=== PATIENT | male | born 1970 | race Caucasian/White ===

== ENCOUNTER 2020-10-11 10:45 | Emergency (ER) | payer OTHER, SELFPAY ==
--- NOTE | 2020-10-11 10:54 | ED.GENADULT ---
HPI - General Adult General Chief complaint: Ear Stated complaint: Ear Infection Time Seen by Provider: 10/11/20 10:54 Source: patient Mode of arrival: ambulatory Limitations: no limitations History of Present Illness HPI narrative: 50-year-old male patient presents to [facility] with complaints of pain to bilateral ears for the past 5 days. Patient states he has had a little bit of a runny nose, stuffy nose and a little bit of coughing but it is nonproductive. Patient states he does get allergies this time year every year but denies taking any daily antihistamines. Patient states he has been working 12-hour days and has been using earplugs during the duration of his work time as well. Denies any fevers, body aches or chills. Denies being around anybody with Covid that he is aware of. Related Data Home Medications Medication Instructions Recorded Confirmed ibuprofen 800 mg PO BID 10/11/20 10/11/20 Allergies Allergy/AdvReac Type Severity Reaction Status Date / Time No Known Allergies Allergy Verified 10/11/20 11:07 Review of Systems Review of Systems: Narrative: CONSTITUTIONAL: Denies fever, chills, or sweats. EYES: Denies visual changes, redness, or discharge. ENT: Positive rhinorrhea, congestion, denies sore throat, positive bilateral otalgia. CARDIOVASCULAR: Denies chest pain, palpitations, or edema. RESPIRATORY: Positive dry cough, denies dyspnea. GASTROINTESTINAL: Denies abdominal pain, nausea, vomiting, or diarrhea. GENITOURINARY: Denies dysuria or hematuria. SKIN: Denies rash or itching. MUSCULOSKELETAL: Denies back pain, joint pain, or myalgia. NEUROLOGIC: Denies headache, numbness, or weakness. PSYCHIATRIC: Denies anxiety or depression. [facility] Surgical History Surgical History (Updated 10/11/20 @ 10:55 by JOSH Priest) H/O vasectomy History of orthopedic surgery Right knee x2 Comments At the time of my signature I agree with nursing past medical history, surgical, social, and family history. There is no relevant family history pertinent to the presenting complaint. Exam Narrative: Exam Narrative: GENERAL: Well-appearing, well-nourished, and in no acute distress. HEAD: Normocephalic, atraumatic. EYES: PERRLA and EOMI. ENT: Nares with erythema and edema noted bilaterally, no rhinorrhea or epistaxis. Mucous membranes moist. Bilateral TMs with erythema and some fluid noted behind them. There is some superficial abrasions noted to the bilateral canals most likely due to her as earplugs. Posterior pharynx no erythema, tonsillectomy, exudates or lesions present. NECK: Supple. No lymphadenopathy CHEST: Clear to auscultation. No respiratory distress. HEART: Regular rate and rhythm. No murmur heard. Normal peripheral pulses. ABDOMEN: Soft, nontender, nondistended, normal active bowel sounds. EXTREMITIES: Normal range of motion. No edema. SKIN: Warm, dry, no rash. NEURO: No focal deficits. Alert and oriented x3. Course Vital Signs Vital signs: Vital Signs Temperature 36.6 C 10/11/20 10:59 Pulse Rate 68 10/11/20 10:59 Respiratory Rate 20 10/11/20 10:59 Blood Pressure 150/89 H 10/11/20 10:59 Pulse Oximetry 100 10/11/20 10:59 Temperature 36.6 C 10/11/20 10:59 Pulse Rate 68 10/11/20 10:59 Respiratory Rate 20 10/11/20 10:59 Blood Pressure 150/89 H 10/11/20 10:59 Pulse Oximetry 100 10/11/20 10:59 Vital signs reviewed The patient has been informed that they may have pre-hypertension or Hypertension based on a BP reading in the department. I recommend that the patient call the primary care provider listed on their discharge instructions or a physician of their choice this week to arrange follow up for further evaluation of possible pre-hypertension or Hypertension Medical Decision Making Differential Diagnosis Differential Diagnosis: Differential diagnosis: Otitis media, otitis externa, perforated TM, infection of the outer ear, foreign body or cerumen impact
[2020-10-11 10:59] VITALS: BP 150/89; PULSE 68; RESP 20; TEMP 36.6; O2SAT 100
== END 2020-10-11 11:14 | disposition home or self-care (01) ==
PROVIDERS: Emergency Provider Nurse Practitioner Family
DX: H66.93 Otitis media, unspecified, bilateral (principal); Z98.52 Vasectomy status
CPT/HCPCS: 99213; G0463

== ENCOUNTER 2022-06-04 11:19 | Emergency (ER) | payer OTHER, SELFPAY ==
[2022-06-04 11:25] VITALS: BP 141/77; PULSE 67; RESP 20; TEMP 36.6; O2SAT 99
--- NOTE | 2022-06-04 11:49 | ED.URI ---
HPI - URI/Sore Throat General Chief Complaint: Upper Respiratory Infection Stated Complaint: sinus congestion cough Time Seen by Provider: 06/04/22 11:32 Source: patient, RN notes reviewed and old records reviewed Mode of arrival: ambulatory Limitations: no limitations History of Present Illness HPI Narrative: 52-year-old male presents to [facility] care with complaints of having COVID at the end of April with continued episodes of cough. Patient reports that he has sinus drainage, pressure in his ears with continued cough. Patient reports that he has history of having sinus infections and he thinks that congestion and cough is lingering from COVID. Patient has been taking Tylenol cold and flu with no improvement in sinus pressure and drainage.Patient denies any dyspnea or any wheezing or recent fevers. MD elicited complaint: cough, rhinorrhea, nasal congestion and sinus pain Pertinent past history: sinusitis and other (tested positive for COVID on May 15) Able to tolerate fluids by mouth: Yes Treatments prior to arrival: other (Tylenol COLD and FLU) Related Data Home Medications Medication Instructions Recorded Confirmed albuterol sulfate 90 mcg/actuation 90 mcg inhalation Q4-6H PRN 06/04/22 06/04/22 aerosol inhaler Shortness Of Breath Or Wheezing ibuprofen 800 mg tablet 800 mg PO BID 06/04/22 06/04/22 Allergies Allergy/AdvReac Type Severity Reaction Status Date / Time No Known Allergies Allergy Verified 06/04/22 11:36 Review of Systems Review of Systems: CONSTITUTIONAL: Denies fever, chills, or sweats. EYES: Denies visual changes, redness, or discharge. ENT: Positive for rhinorrhea, congestion,no sore throat, positive for otalgia, sinus pressure. CARDIOVASCULAR: Denies chest pain, palpitations, or edema. RESPIRATORY: Positive for cough denies dyspnea. GASTROINTESTINAL: Denies abdominal pain, nausea, vomiting, or diarrhea. GENITOURINARY: Denies dysuria or hematuria. SKIN: Denies rash or itching. MUSCULOSKELETAL: Denies back pain, joint pain, or myalgia. NEUROLOGIC: Positive for frontal headache,no numbness, or weakness. PSYCHIATRIC: Denies anxiety or depression. All systems reviewed & are unremarkable except as noted in HPI and below PMFSH Past Medical History Medical History (Updated 06/04/22 @ 14:07 by Mckenzie Diaz NP) Acute sinusitis COVID-19 April Surgical History Surgical History (Updated 10/11/20 @ 10:55 by JOSH Priest) H/O vasectomy History of orthopedic surgery Right knee x2 Social History Social History (Updated 06/04/22 @ 14:00 by Mckenzie Diaz NP) Smoking status: Never smoker Substance use type: does not use Living arrangements: with family Gender identity (if verbalized by the patient): Male Comments At time of signature, agree with nursing past medical, surgical, social and family history. There is no relevant family history pertinent to the presenting complaint Exam Narrative: GENERAL: Well-appearing, well-nourished, and in no acute distress. HEAD: Normocephalic, atraumatic. EYES: PERRLA and EOMI. ENT: Nares with red membranes, yellow greenish sinus rhinorrhea no epistaxis. Mucous membranes moist. TM's normal with dull light reflex, throat with some redness with no lesions or exudates or tonsil swelling. NECK: Supple.no lymphadenopathy CHEST: Clear to auscultation. No respiratory distress. cough noted with SAO2 99% on room air HEART: Regular rate and rhythm. No murmur heard. Normal peripheral pulses. ABDOMEN: Soft, nontender, nondistended, normal active bowel sounds. EXTREMITIES: Normal range of motion. No edema. SKIN: Warm, dry, no rash. NEURO: No focal deficits. Alert and oriented x3. Course Course Level of Care: Express Care Visit Vital Signs Vital signs: Vital Signs Temperature 36.6 C 06/04/22 11:25 Pulse Rate 67 06/04/22 11:25 Respiratory Rate 20 06/04/22 11:25 Blood Pressure 141/77 H 06/04/22 11:25 Pulse Oxi
== END 2022-06-04 12:10 | disposition home or self-care (01) ==
PROVIDERS: Emergency Provider Registered Nurse; PCP Family Medicine
DX: J32.9 Chronic sinusitis, unspecified (principal); R05.1 Acute cough; Z86.16 Personal history of COVID-19
CPT/HCPCS: 99213; G0463

== ENCOUNTER 2025-07-23 16:28 | Emergency (ER) | payer OTHER, SELFPAY ==
[2025-07-23 16:40] VITALS: BP 140/75; PULSE 83; RESP 20; TEMP 36.7; O2SAT 98
[2025-07-23 16:54] LABS: EDCOVIDSCREEN Negative (Negative); EDINFLUASCREEN Negative (Negative); EDINFLUBSCREEN Negative (Negative)
--- NOTE | 2025-07-23 17:02 | ED.URI ---
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 Believes this is due to sitting in the rain watching sports just prior to onset of symptoms. Also states his granddaughter has similar symptoms and received a Z-Juanito. Believes he also needs a Zpack as this is usually how he is treated with similar symptoms. Denies fever. He has tried Tylenol cold, ibuprofen, and albuterol nebulizer treatments with some improvement. Related Data Home Medications ?Medication ?Instructions ?Recorded ?Confirmed ?Last Taken ?Type albuterol sulfate 90 mcg/actuation 90 mcg inhalation Q4-6H PRN 06/04/22 06/04/22 Unknown History aerosol inhaler Shortness Of Breath Or Wheezing hydrocodone 5 mg-acetaminophen 325 tablet 07/23/25 Unknown History mg tablet Allergies Allergy/AdvReac Type Severity Reaction Status Date / Time No Known Allergies Allergy Verified 07/23/25 16:40 [facility] Past Medical History Medical History COVID-19 May 15,2921 Acute sinusitis Surgical History Surgical History History of orthopedic surgery Right knee x2 H/O vasectomy Social History Social History Substance use type: does not use Living arrangements: with family Gender identity (if verbalized by the patient): Male Comments At time of signature, I have reviewed and agree with nursing past medical, surgical, social and family history unless otherwise noted. Please see nursing chart for further information. There is no relevant family history pertinent to the presenting complaint Exam Narrative: GENERAL: Well-appearing, over-nourished, and in no acute distress. HEAD: Normocephalic, atraumatic. EYES: EOMI. No redness or drainage. Conjunctivae normal. ENT: Mucous membranes pink and moist. Nares congested. No rhinorrhea. TMs normal bilaterally. Throat normal. Uvula midline. NECK: Normal AROM. Supple. No lymphadenopathy. CHEST: No respiratory distress. Clear to auscultation. HEART: Regular rate and rhythm. No murmur appreciated. EXTREMITIES: Normal range of motion. No edema. SKIN: Warm, dry, no rash. Capillary refill normal. Normal skin turgor. NEURO: No focal deficits. Alert and oriented x3. Gait steady. PSYCH: Normal affect. No signs of depression or anxiety. Course Course Level of Care: Express Care Visit Vital Signs Vital signs: Vital Signs Temperature 98.1 F 07/23/25 16:40 Pulse Rate 83 07/23/25 16:40 Respiratory Rate 20 07/23/25 16:40 Blood Pressure 140/75 07/23/25 16:40 Pulse Oximetry 98 07/23/25 16:40 Oxygen Delivery Room Air 07/23/25 16:40 Temperature 98.1 F 07/23/25 16:40 Pulse Rate 83 07/23/25 16:40 Respiratory Rate 20 07/23/25 16:40 Blood Pressure 140/75 07/23/25 16:40 Pulse Oximetry 98 07/23/25 16:40 Oxygen Delivery Room Air 07/23/25 16:40 Reviewed MDM - URI/Sore Throat MDM Narrative Medical decision making narrative: 55-year-old male patient with 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 Believes this is due to sitting in the rain watching sports just prior to onset of symptoms. Also states his granddaughter has similar symptoms and received a Z-Juanito. Believes he also needs a Zpack as this is usually how he is treated with similar symptoms. Denies fever. He has tried Tylenol cold, ibuprofen, and albuterol nebulizer treatments with some improvement. Upon exam, patient has some nasal congestion, but exam is otherwise normal. Influenza test negative, COVID negative. Symptoms likely viral in etiology. At this time, patient does not have signs or symptoms of a bacterial infection that would indicate an antibiotic prescription. Discussed [id number] medication use and duration of illness. 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 Will also provide some Tessalon Perles for cough. Anticipatory guidance given. VSS. Differential Diagnosis Differential diagnosis: Likely upper respiratory infection (Pneumonia), otitis media, viral infection, influenza and other (COVID ) Lab Data Attestation: I reviewed the patient's lab results. Labs: Lab Results 07/23/25 Range/Units 16:52 POC Influenza A Ag Negative (Negative) POC Influenza B Ag Negative (Negative) POC SARS CoV-2 Ag Negative (Negative) Critical Care Time Critical Care Time Critical Care Time: No Discharge Plan Discharge Clinical Impression: Upper respiratory infection Qualifiers: URI type: unspecified URI Qualified Code(s): J06.9 - Acute upper respiratory infection, unspecified Patient Disposition: Home Condition: Stable Instructions: Upper Respiratory Infection (DC) Additional Instructions: Your COVID-19 and influenza swabs are negative today. Your symptoms are likely due to a viral illness, which is not treated with antibiotics. Virus symptoms can last for up to 7-10days. Take Tylenol or ibuprofen for pain or fever. Take the prednisone and Tessalon Perles as prescribed. Use your albuterol nebulizer treatments as needed for wheezing or shortness of breath. Rest and stay hydrated. Follow up with your PCP in 5 days if symptoms are not improving. Go to the ER immediately if you develop worsening shortness of breath, difficulty swallowing, development of new fever greater than 100.3, or any other concerning symptoms. Patient Language: Indian Prescriptions: New benzonatate 200 mg capsule 200 mg PO TID PRN (Reason: cough) Qty: 20 0RF prednisone 50 mg tablet 50 mg PO DAILY 5 Days Qty: 5 0RF No Action albuterol sulfate 90 mcg/actuation HFA aerosol inhaler 90 mcg INHALATION Q4-6H PRN (Reason: Shortness Of Breath Or Wheezing) hydrocodone-acetaminophen 5-325 mg tablet Follow-up/Referrals: Korina,Titi Grace MD [Primary Care Provider, Unknown] Time of Disposition: 17:02
--- OUTSIDE RECORDS SUMMARY | 2025-07-23 21:07 | XMS_ITS | Encounter Summary ---
Author Organization [facility] Address [address] [place] [address] Phone Care Team Providers Care Business System Manager Name Role Phone Titi Hui MD Primary Care Provider [phone] Melissa Swanson APRN, PRESSURE CONTROL SUPERVISOR Unavailable [phone] Reason for Visit * Reason Comments Medication Refill Encounter Details Date Type Department Care Team (Late Contact Info) Description 05/13/2021 Refill [facility] [address] [place] [id number] Bishnu Dillard APRN, PRESSURE CONTROL SUPERVISOR [address] [address] Medication Refill Social History Tobacco Use Types Packs/Day Years Used Date Smoking Tobacco: Never Smokeless Tobacco: Never Alcohol Use Standard Drinks/Week Comments No 0 (1 standard drink = 0.6 oz pur e alcohol) PHQ-2 Answer Date Recorded Total Score - Questions 1-9 0 07/0 02/2021 Sexually Active Control Partners Comments Yes Female Sex and Gender Information Value Date Recorded Sex Assigned at Not on file Legal Sex Male 9:46 PM CDT Gender Identity Not on file Sexual Orientation Not on file Occupation Industry Job Start Date Job End Date [employer] Not on file Not on file Not on file COVID-19 Exposure Response Date Recorded In the last month, have you been in contact with someone who was confirmed or suspected to have Coronavirus / COVID-19? No / Unsure 05/09/2021 7:47 AM CDT documented as of this encounter Miscellaneous Notes * Telephone Encounter - Margarita Bautista RN - 05/16/2021 10:51 AM CDT Medication failed the protocol, provider to review and approve the medication order if appropriate. Requested Prescriptions Pending Prescriptions Disp Refills ibuprofen (MOTRIN) 800 MG Tablet [Pharmacy Med Name: IBUPROFEN 800MG TABS] 180 Tablet 1 Sig: TAKE ONE TABLET BY MOUTH TWICE A DAY NEEDED FOR MODERATE OR MORE SEVERE PAIN NSAIDs Protocol Failed - 05/13/2021 2:13 PM Failed - Normal serum creatinine in past 12 months CREATININE, BLOOD Date Value Ref Range Status 03/22/2021 0.77 (L) 0.80 - 1.30 mg/dL Final Passed - Visit with relevant provider in past 12 months or upcoming 90 days Recent Visits Date Type Provider Dept 03/22/21 Office Visit Bishnu Dlilard APN, [facility] [place] 09/13/20 Office Visit Bishnu Dillard APN, [facility] [place] Showing recent visits within past 365 days and meeting all other requirements Future Appointments Date Type Provider Dept 06/29/21 Appointment Titi Hui MD [facility] Showing future appointments within next 90 days and meeting all other requirements Passed - No matching NSAID med order in past 45 days No matching medication orders between 04/01/2021 10:51 AM and 05/16/2021 10:51 AM Passed - AST less than 55 or ALT less than 90 in past 12 months SGOT (AST) Date Value Ref Range Status 03/22/2021 12 <=40 U/L Final SGPT (ALT) Date Value Ref Range Status 03/22/2021 16 <=41 U/L Final Passed - HGB greater than 10 or HCT greater than 30 in past 12 months HEMOGLOBIN (HGB) Date Value Ref Range Status 03/22/2021 13.6 13.0 - 16.5 g/dL Final HEMATOCRIT (HCT) Date Value Ref Range Status 03/22/2021 43.0 38.0 - 50.0 % Final documented in this encounter Plan of Treatment Upcoming Encounters Date Type Department Care Team (Late st Contact Info) Description 08/05/2025 4:15 PM METAL DIE FINISHER Office Visit [facility] - [facility] - [place] [address] [place] [address] Titi Hui MD [address]2 [facility] [address] [place] [address] 08/10/2025 4:00 PM METAL DIE FINISHER Office Visit [facility] - Pulmonology & Sleep Medicine - [place] [address] [facility] [address] Melissa Swanson APRN, PRESSURE CONTROL SUPERVISOR [address]2 [facility] [address] [place] [address] documented as of this encounter Visit Diagnoses Diagnosis Chronic joint pain Pain in joint, site unspecified documented in this encounter Additional Health Concerns Infection Onset Date Last Indicated Resolved Time COVID - 19 06/29/2021 06/29/2021 07/19/2021 12:1 6 AM CDT COVID - 19 06/18/2023 06/18/2023 06/28/2023 12:1 6 AM CDT COVID - 19 09/12/2023 09/12/2023 09/22/2023 12:1 6 AM METAL DIE FINISHER Assessment Noted Time PHQ-9 Depression Total Score: 0 03/22/20 21 9:00 AM CDT documented as of this encounter Care Teams Business System Manager Relationship Specialty Start Date End Date Titi Hui MD [address] [facility] [address] [place] [address] PCP - General Family Medicine 02/15/17 Melissa Swanson APRN, PRESSURE CONTROL SUPERVISOR [address] [place] [address] Nurse Practitioner Advanced Practice Nurse 02/04/24 documented as of this encounter
--- OUTSIDE RECORDS SUMMARY | 2025-07-23 21:07 | XMS_ITS | Encounter Summary ---
Author Organization [facility] Address [address] [place] [address] Phone Care Team Providers Care [employer] Member Other Ranks Name Role Phone Titi Hui MD Primary Care Provider [phone] Melissa Swanson APRN, OUTDOOR PURSUITS INSTRUCTOR Unavailable [phone] Reason for Visit * Reason Comments Medication Refill Encounter Details Date Type Department Care Team (Late Contact Info) Description 12/22/2021 Refill [facility] [address] [place] [address] Titi Hui MD [address] [address] Medication Refill Social History Tobacco Use Types Packs/Day Years Used Date Smoking Tobacco: Never Smokeless Tobacco: Never Alcohol Use Standard Drinks/Week Comments No 0 (1 standard drink = 0.6 oz pur e alcohol) PHQ-2 Answer Date Recorded Total Score - Questions 1-9 0 07/02/2021 Sexually Active Control Partners Comments Yes Female Sex and Gender Information Value Date Recorded Sex Assigned at Not on file Legal Sex Male 9:46 PM CDT Gender Identity Not on file Sexual Orientation Not on file Occupation Industry Job Start Date Job End Date [employer] Not on file Not on file Not on file documented as of this encounter Miscellaneous Notes * Telephone Encounter - Margarita Bautista RN - 12/22/2021 11:47 AM CDT [place] 11/15/21 Medication failed the protocol, provider to review and approve the medication order if appropriate. Requested Prescriptions Pending Prescriptions Disp Refills HYDROcodone-acetaminophen (NORCO) 5-325 MG Tablet [Pharmacy Med Name: HYDROCODONE-ACETAMINOPHE 5-325 TABS] 30 Tablet 0 Sig: TAKE 1 TABLET BY MOUTH DAILY NEEDED FOR MODERATE OR MORE SEVERE PAIN. Not Delegated - Opioid Combinations Protocol Failed - 12/22/2021 11:25 AM Failed - This refill cannot be delegated Passed - Visit with relevant provider in past 12 months or upcoming 90 days Recent Visits Date Type Provider Dept 11/14/21 Office Visit Titi Hui MD [facility] 06/29/21 Office Visit Titi Hui MD [facility] 03/22/21 Office Visit Bishnu Dillard APRN, OUTDOOR PURSUITS INSTRUCTOR [facility] Showing recent visits within past 365 days and meeting all other requirements Future Appointments Date Type Provider Dept 02/14/22 Appointment Titi Hui MD [facility] Showing future appointments within next 90 days and meeting all other requirements ibuprofen (MOTRIN) 800 MG Tablet [Pharmacy Med Name: IBUPROFEN 800MG TABS] 180 Tablet 1 Sig: TAKE ONE TABLET BY MOUTH TWICE A DAY NEEDED FOR MODERATE OR MORE SEVERE PAIN NSAIDs Protocol Failed - 12/22/2021 11:25 AM Failed - Normal serum creatinine in past 12 months CREATININE, BLOOD Date Value Ref Range Status 03/22/2021 0.77 (L) 0.80 - 1.30 mg/dL Final Passed - Visit with relevant provider in past 12 months or upcoming 90 days Recent Visits Date Type Provider Dept 11/14/21 Office Visit Titi Hui MD [facility] 06/29/21 Office Visit Titi Hui MD [facility] 03/22/21 Office Visit Bishnu Dillard APRN, OUTDOOR PURSUITS INSTRUCTOR [facility] Showing recent visits within past 365 days and meeting all other requirements Future Appointments Date Type Provider Dept 02/14/22 Appointment Titi Hui MD [facility] Showing future appointments within next 90 days and meeting all other requirements Passed - No matching NSAID med order in past 45 days No matching medication orders between 11/07/2021 11:47 AM and 12/22/2021 11:47 AM Passed - AST less than 55 [...] st Contact Info) Description 08/05/2025 4:15 PM CABLE RIGGER Office Visit [facility] - Family Medicine - [place] [address] [place] [address] Titi Hui MD [address]2 [facility] [address] [place] [address] 08/10/2025 4:00 PM CABLE RIGGER Office Visit [facility] - Pulmonology & Sleep Medicine - [place] [address] [place] [address] Melissa Swanson APRN, OUTDOOR PURSUITS INSTRUCTOR [address]2 [facility] [address] [place] [address] documented as of this encounter Visit Diagnoses Diagnosis Chronic joint pain Pain in joint, site unspecified documented in this encounter Additional Health Concerns Infection Onset Date Last Indicated Resolved Time COVID - 19 06/18/2023 06/18/2023 06/28/2023 12:1 6 AM CDT COVID - 19 09/12/2023 09/12/2023 09/22/2023 12:1 6 AM CABLE RIGGER Assessment Noted Time PHQ-9 Depression Total Score: 0 03/22/20 21 9:00 AM CDT documented as of this encounter Care Teams [employer] Member Other Ranks Relationship Specialty Start Date End Date Titi Hui MD [address]2 [facility] [address] [place] [address] PCP - General Family Medicine 02/15/17 Melissa Swanson APRN, OUTDOOR PURSUITS INSTRUCTOR [address]2 [facility] [address] [place] [address] Nurse Practitioner Advanced Practice Nurse 02/04/24 documented as of this encounter
--- OUTSIDE RECORDS SUMMARY | 2025-07-23 21:07 | XMS_ITS | Encounter Summary ---
Author Organization [facility] Address [address] [place] [address] Phone Care Team Providers Care Cane Furniture Maker Name Role Phone Titi Hui MD Primary Care Provider [phone] Melissa Swanson APRN, INVESTMENT COUNSELOR Unavailable [phone] Reason for Visit * Reason Comments Medication Refill Encounter Details Date Type Department Care Team (Late Contact Info) Description 06/16/2023 Refill [facility] Medicine [facility] [address]2 [place] [address] Titi Hui MD #[address] [address] Medication Refill Social History Tobacco Use Types [...] Industry Job Start Date Job End Date [employer] Not on file Not on file Not on file COVID-19 Exposure Response Date Recorded In the last 10 days, have yo u been in contact with someone who was confirmed or suspected to have Coronavirus/COVID-19? No / Unsure 06/18/2023 12:32 PM CDT documented as of this encounter Miscellaneous Notes * Telephone Encounter - Margarita Bautista RN - 06/18/2023 11:15 AM CDT PRN medication requires review from provider Per nursing clinical judgement, provider to review and approve the medication(s) order(s) if appropriate. Requested Prescriptions Pending Prescriptions Disp Refills albuterol 108 (90 Base) MCG/ACT Aerosol Solution [Pharmacy Med Name: ALBUTEROL SULFATE HFA 108 AERS] 8.5 g 2 Sig: INHALE 2 PUFFS BY MOUTH EVERY 4 HOURS NEEDED FOR WHEEZING OR COUGH Short Acting Inhaled Beta-Agonists Protocol Passed - 06/16/2023 9:56 AM Passed - Visit with relevant provider in past 12 months or upcoming 90 days Recent Visits Date Type Provider Dept 06/08/23 Office Visit Bishnu Dillard APRN, LOREN [facility] 01/17/23 Office Visit Titi Hui MD [facility] 09/22/22 Office Visit Rose Marie Dennis APRN, [facility] 06/20/22 Office Visit Rose Marie Dennis APRN, INVESTMENT COUNSELOR [facility] Showing recent visits within past 365 days and meeting all other requirements Future Appointments No visits were found meeting these conditions. Showing future appointments within next 90 days and meeting all other requirements documented in this encounter Plan of Treatment Upcoming Encounters Date Type Department Care Team (Late st Contact Info) Description 08/05/2025 4:15 PM WILLOW ANALYST [facility] Visit [facility] - [place] [address] [place] [address] Titi Hui MD #[address] [address] 08/10/2025 4:00 PM WILLOW ANALYST Office Visit [facility] - Pulmonology & Sleep Medicine [facility] [address] [place] [address] Melissa Swanson APRN, INVESTMENT COUNSELOR #[address] [facility] [address] [place] [address] documented as of this encounter Visit Diagnoses Not on filedocumented in this encounter Additional Health Concerns Infection Onset Date Last Indicated Resolved Time COVID - 19 06/18/2023 06/18/2023 06/28/2023 12:1 6 AM CDT COVID - 19 09/12/2023 09/12/2023 09/22/2023 12:1 6 AM WILLOW ANALYST Assessment Noted Time PHQ-9 Depression Total Score: 0 03/22/20 21 9:00 AM CDT documented as of this encounter Care Teams Cane Furniture Maker Relationship Specialty Start Date End Date Titi Hui MD [address]2 [facility] [address] [place] [address] PCP - General Family Medicine 02/15/17 Melissa Swanson APRN, LOREN #[address] [facility] [address] [place] [address] Nurse Practitioner Advanced Practice Nurse 02/04/24 documented as of this encounter
--- OUTSIDE RECORDS SUMMARY | 2025-07-23 21:07 | XMS_ITS | Clinical Summary ---
Author Organization [facility] Address [address], [address] [address] Phone Care Team Providers Care Nanofabrication Specialist Name Role Phone Titi Hui MD Primary Care Provider + [phone] Melissa Swanson APRN, LINOTYPE MECHANIC Unavailable Allergies No known active allergies Medications acetaminophen (TYLENOL) 500 MG Tablet Take 500 mg by mouth every 4 hours as needed for Pain. Active Ascorbic Acid (VITAMIN C PO) Take by mouth daily. Active zinc sulfate (ZINCATE) 220 (50 Zn) MG Capsule Take 220 mg by mouth daily. Active ibuprofen (MOTRIN) 800 MG TabletIndicati ons:Chronic joint pain TAKE 1 TABLET BY MOUTH 2 TIMES DAILY NEEDED FOR MODERATE OR MORE SEVERE PAIN. 180 Tablet 1 5 Active albuterol 108 (90 Base) MCG/ACT Aerosol Solution take 2 Puffs by inhalation every 4 hours as needed for Wheezing or Cough. 8.5 g 2 5 Active ipratropium-al buterol (DUO-NEB) 0.5-2.5 (3) MG/3ML SolutionIndica tions:Wheezes 3 mL by Nebulization route every 6 hours. 360 mL 1 5 Active HYDROcodone-ac etaminophen (NORCO) 5-325 MG TabletIndicati ons:Chronic pain syndrome Take 1 Tablet by mouth 2 times daily as needed for Moderate or more severe pain. 60 Tablet 5 Active ipratropium-al buterol (DUO-NEB) 0.5-2.5 (3) MG/3ML SolutionIndica tions:Wheezes 3 mL by Nebulization route every 6 hours. 360 mL 1 5 025 Discontin ued(Reord er) HYDROcodone-ac etaminophen (NORCO) 5-325 MG TabletIndicati ons:Chronic pain syndrome Take 1 Tablet by mouth 2 times daily as needed for Moderate or more severe pain. 60 Tablet 5 025 Discontin ued(Reord er) Active Problems Problem Noted Date Diagnosed Date Mixed simple and mucopurulent chronic bronchitis 02/06/2025 Impaired fasting glucose 01/05/2025 History of foot surgery 03/12/2024 Skin lesion 03/12/2024 SOB (shortness of breath) 02/04/2024 Wheezing 02/04/[address] of the chest 10/18/2023 Chronic pain syndrome 01/18/2023 COVID-19 05/16/2022 Cataract of right eye 11/14/2021 Chronic foot pain, left 11/14/2021 Left leg pain 06/29/2021 Close exposure to COVID-19 virus 06/29/2021 S/P foot surgery, left 05/01/2019 Seasonal allergies 01/29/2019 LOREN (obstructive sleep apnea) 07/03/2018 Hypertrophy of inferior nasal turbinate 07/03/20 18 PNAR (perennial non-allergic rhinitis) 8 B12 deficiency 02/28/2017 Vitamin D deficiency 02/28/2017 Morbid obesity 02/15/2017 Chronic joint pain 02/15/2017 Chronic fatigue 02/15/2017 Family history of diabetes mellitus (DM) 017 Snoring 02/15/2017 Resolved Problems Problem Noted Date Diagnosed Date Resolved Date Multiple lung nodules on CT 10/18/2023 08/07/2024 Chronic cough 10/08/2023 02/06/2025 Bronchitis 06/21/2023 02/06/2025 Encounters Date Type Department Care Team Description 07/10/2025 MyChart RX Renewal [facility] #2 [place] [address] Titi Hui MD Medication Renewal Reviewed 07/06/2025 Refill [facility] - [place] #[address] [place] [address] Melissa Swanson APRN, LINOTYPE MECHANIC Medication Refill 06/08/2025 MyChart RX Renewal [facility] [address] [place] [address] Titi Hui MD Medication Renewal Reviewed 05/12/2025 [facility]2 [place] [address] Titi Hui MD Medication Renewal Declined 05/12/2025 MyChart RX Renewal [facility] [address] [place] [address] Bishnu Dillard APRN, LINOTYPE MECHANIC Medication Renewal Reviewed 05/08/2025 [facility]ill [facility]2 [place] [address] Titi Hui MD Medication Refill from Last 3 Months Immunizations Immunization Administration Dates Next Due Influenza Vaccine greater than 3 yrs 07/18/2020 Influenza Vaccine, Quadrivalent, PF 10/0 12/2021,06/29/2021,08/01/2019,2018 Influenza, Seasonal, Injecta ble, Undefined 07/18/2020 Influenza, Trivalent, Adjuvanted, PF 07/18/2020 Family History Medical History Relation Name Comments Diabetes Brother Hypertension Brother No Known Problems Daughter 1 No Known Problems Daughter 2 Diabetes Father Hypertension Father Cancer Maternal Aunt Coronary Artery Disease Maternal Grandfather Heart Attack Maternal Grandfather Cancer Maternal Grandmother brain a nd breast Cancer Mother stomach Diabetes Mother Emphysema Paternal Grandfather Congestive Heart Failure Paternal Grandmother No Known Problems Son Relation Name Status Comments Brother Alive Daughter 1 Alive Daughter 2 Alive Father Alive Maternal Aunt Maternal Grandfather Maternal Grandmother Mother (Age 48) Paternal Grandfather Paternal Grandmother Son Alive Social History Tobacco Use Types Packs/Day Years Used Date Smoking Tobacco: Never Smokeless Tobacco: Never Tobacco Cessation:Counseling Given: No Alcohol Use Standard Drinks/Week Comments No 0 (1 standard drink = 0.6 oz pur e alcohol) [facility] Utilities Answer Date Recorded In the past 12 months has th e electric, gas, oil, or water company threatened to shut off services in your home? No 03/12/2024 Social Connection and Isolation Panel Answer Date Recorded In a typical week, how many times do you talk on the phone with family, friends, or neighbors? More than three times a week 03/12/2024 How often do you get togethe r with friends or relatives? More than three times a week 03/12/2024 How often do you attend chur ch or taoism services? Patient declined 03/12/2024 Do you belong to any clubs o r organizations such as spiritism groups, unions, fraternal or athletic groups, or school groups? Yes 03/12/2024 How often do you attend meet ings of the clubs or organizations you belong to? More than 4 times per year 03/12/2024 Are you , , di vorced, , never , or living with a partner? 03/12/2024 AUDIT-C Answer Date Recorded Q1: How often do you have a drink containing alcohol? Monthly or less 03/12/2024 Q2: How many drinks containi ng alcohol do you have on a typical day when you are drinking? Patient does not drink Q3: How often do you have si x or more drinks on one occasion? Never 03/12/2024 Overall Financial Resource Strain (CARDIA) Answe r Date Recorded How hard is it for you to pa y for the very basics like food, housing, medical care, and heating? Not hard at all 03/12/2024 PHQ-2 Answer Date Recorded Total Score - Questions 1-9 0 11/[address] [facility] of Occupat ional Health - Occupational Stress Questionnaire Answer Date Recorded Do you feel stress - tense, restless, nervous, or anxious, or unable to sleep at night because your mind is troubled all the time - these days? Not at all 03/12/2024 Exercise Vital Sign Answer Date Recorde d On average, how many days pe r week do you engage in moderate to strenuous exercise (like a brisk walk)? 0 days 03/12/2024 On average, how many minutes do you engage in exercise at this level? 0 min 03/12/2024 Hunger Vital Sign Answer Date Recorded Within the past 12 months, y ou worried that your food would run out before you got the money to buy more. Never true 03/12/20 24 Within the past 12 months, t he food you bought just didn't last and you didn't have money to get more. Never true 03/12/2024 PRAPARE - Transportation Answer Date Re corded In the past 12 months, has l ack of transportation kept you from medical appointments or from getting medications? No 02/16 In the past 12 months, has l ack of transportation kept you from meetings, work, or from getting things needed for daily living? No 03/12/2024 Housing Stability Vital Sign Answer Teodoro e Recorded In the last 12 months, was t here a time when you were not able to pay the mortgage or rent on time? No 03/12/2024 In the past 12 months, how m any times have you moved where you were living? 0 03/12/2024 At any time in the past 12 m [facility], were you homeless or living in a residential (including now)? No 03/12/2024 Sexually Active Control Partners Comments Yes Female Sex and Gender Information Value Date Recorded Sex Assigned at Not on file Legal Sex Male 9:46 PM CDT Gender Identity Not on file Sexual Orientation Not on file Occupation Industry Job Start Date Job End Date [employer] Not on file Not on file Not on file Last Filed Vital Signs Vital Sign Reading Time Taken Comments Blood Pressure 132/74 04/01/2025 3:06 PM CDT Pulse 81 04/01/2025 3:06 PM CDT Temperature 36 C (96.8 F) 04/01/2025 3:06 PM CDT Respiratory Rate 16 04/01/2025 3:06 PM CDT Oxygen Saturation 97% 04/01/2025 3: 06 PM CDT Inhaled Oxygen Concentration - - Weight 164.1 kg (361 lb 11.2 oz) 04/01/2025 3:06 PM CDT Height 185.4 cm (6' 1) 04/01/2025 3:06 PM CDT Body Mass Index 47.72 04/01/2025 3:06 PM CDT Plan of Treatment Upcoming Encounters Date Type Department Care Team (Late st Contact Info) Description 08/05/2025 4:15 PM MAPLE SYRUP MAKER Office Visit [facility] - Family Medicine [facility] [address] [place] [address] Titi Hui MD #2 [facility] [address] [place] [address] 08/10/2025 4:00 PM MAPLE SYRUP MAKER Office Visit [facility] - Pulmonology & Sleep Medicine [facility] [address] [place] [address] Melisas Swanson APRN, LINOTYPE MECHANIC #2 [facility] [address] [place] [address] Health Maintenance Due Date Last Done Comments TdaP Immunization 1968 Hepatitis B Immunization (1 of 3 - 19+ 3-dose series) 01/29/1987 Cologuard 01/29/2013 Immunochemical Fecal Occult Blood 01/29/2013 Respiratory Syncytial Virus (RSV) Immunization (Adult) (1 - Risk 50-74 years 1-dose series) 01/29/2018 Zoster Immunization (1 of 2) 01/29/2018 Medicare Initial AWV G0438 08/17/2022 Influenza Immunization (#1) 05/18/20250 12/2021, 06/29/2021, 07/18/2020, Additional history exists SARS-COV-2 Immunization (3 - 2024- season) 2025 09/15/2021, 08/25/2021 Pneumococcal Immunization (50+ years) (1 of 2 - PCV) 12/02/2025 Postponed fro m 01/29/1987 (Patient Temporarily Declines) Colonoscopy 09/12/2031 09/12/2021, 09/12/2021 Colorectal Cancer Screening 09/12/2031 PSA Discussion Completed 01/05/2025, 03/22/2021, 04/07/2019, Additional history exists Hepatitis C Virus (HCV) Screening Discontinued Human Papillomavirus (HPV) Immunization Aged Out No longer eligible based on patient's age to complete this topic Meningococcal Immunization (ACWY) Aged Out No longer eligible based on patient's age to complete this topic Rotavirus Immunization Aged Out No lo nger eligible based on patient's age to complete this topic Procedures Procedure Name Priority Date/Time Associated Diagnosis Comments PSA SCREEN Routine 01/05/2025 7:47 AM CDT Screening for prostate cancer from Last 3 Months or Most Recently Relevant to Health Maintenance Results * PSA SCREEN (01/05/2025 7:47 AM CDT) PSA SCREEN, TOTAL 0.23 <4.00 ng/mL 01/05/2025 9:31 AM CDT [facility] Blood Venipuncture / Unknown 01/05/2025 7:47 AM CDT 01/05/2025 8:38 AM CDT Narrative [facility] - 01/05/2025 9:31 AM CDT The ALINITY Total PSA assay is a Chemiluminescent Microparticle Immunoassay (CMIA) for the quantitative determination of total PSA (both free PSA and PSA complexed to [id number]) in human serum. Total PSA values obtained with different assay methods, including Pickard PSA assays, cannot be used interchangeably. us Bishnu Dillard APRN, LINOTYPE MECHANIC CHEMISTRY ORDERA BLES Final Result [facility] [address] [place] [address] from Last 3 Months or Most Recently Relevant to Health Maintenance Insurance [facility] MEDICARE Care Teams Nanofabrication Specialist Relationship Specialty Start Date End Date Titi Hui MD #2 [facility] [address] [place] [address] PCP - General Family Medicine 02/15/17 Melissa Swanson APRN, LINOTYPE MECHANIC #2 [facility] [address] [place] [address] Nurse Practitioner Advanced Practice Nurse 02/04/24
--- OUTSIDE RECORDS SUMMARY | 2025-07-23 21:07 | XMS_ITS | Encounter Summary ---
Author Organization [facility] Address [address] [place] [address] Phone Care Team Providers Care Director Of Kids Name Role Phone Titi Hui MD Primary Care Provider [phone] Melissa Swanson APRN, WASTE SPECIALIST Unavailable [phone]- [phone] Reason for Visit * Reason Comments Medication Refill Encounter Details Date Type Department Care Team (Late Contact Info) Description 01/24/2024 Refill [facility] #2 [place] [address] Titi Hui MD #[address] [address] Medication Refill Social History Tobacco Use Types [...] Industry Job Start Date Job End Date [employer] Not on file Not on file Not on file documented as of this encounter Miscellaneous Notes * Telephone Encounter - Margarita Bautista RN - 01/25/2024 11:34 AM CDT PDMP 01/16/24 - pt received a 7 days supply only - pharmacy confirmed - needs new Rx for 30 days Medication failed the protocol, provider to review and approve the medication order if appropriate. Requested Prescriptions Pending Prescriptions Disp Refills HYDROcodone-acetaminophen (NORCO) 5-325 MG Tablet [Pharmacy Med Name: HYDROCODONE-ACETAMINOPHE 5-325 TABS] 60 Tablet 0 Sig: Take 1 Tablet by mouth 2 times daily as needed for Moderate or more severe pain. Not Delegated - Opioid Combinations Protocol Failed - 01/24/2024 2:03 PM Failed - This refill cannot be delegated Passed - Visit with relevant provider in past 12 months or upcoming 90 days Recent Visits Date Type Provider Dept 12/11/23 Office [facility] [place] [facility] Office Visit Rose Marie Dennis APRN, WASTE SPECIALIST [facility] 06/21/23 [facility] [place] [facility]23 Office Visit Bishnu Dillard APRN, [facility] Showing recent visits within past 365 days and meeting all other requirements Future Appointments Date Type Provider Dept 03/12/24 Appointment T[facility] MD [facility] Showing future appointments within next 90 days and meeting all other requirements documented in this encounter Plan of Treatment Upcoming Encounters Date Type Department Care Team (Late st Contact Info) Description 08/05/2025 4:15 PM IDENTIFICATION OFFICER Office Visit [facility] - Family Medicine - [place] [address] [place] [address] Titi Hui MD #2 [facility] [place] [place] [address] 08/10/2025 4:00 PM IDENTIFICATION OFFICER Office Visit [facility] - Pulmonology & Sleep Medicine [facility] #2 [place] [address] Melissa Swanson APRN, WASTE SPECIALIST #2 [facility] [address] [place] [address] documented as of this encounter Visit Diagnoses Diagnosis Chronic joint pain Pain in joint, site unspecified documented in this encounter Additional Health Concerns Assessment Noted Time PHQ-9 Depression Total Score: 0 03/22/20 21 9:00 AM CDT documented as of this encounter Care Teams Director Of Kids Relationship Specialty Start Date End Date Titi Hui MD #2 [facility] [place] [address] PCP - General Family Medicine 02/15/17 Melissa Swanson APRN, WASTE SPECIALIST #2 [facility] [address] [place] [address] Nurse Practitioner Advanced Practice Nurse 02/04/24 documented as of this encounter
--- OUTSIDE RECORDS SUMMARY | 2025-07-23 21:07 | XMS_ITS | Encounter Summary ---
Author Organization [facility] Address [address] [place] [address] Phone Care Team Providers Care Program Professional Name Role Phone Titi Hui MD Primary Care Provider [phone] Melissa Swanson APRN, TRAFFIC CONTROL OFFICER Unavailable [phone] Reason for Visit * Reason Comments Medication Refill Encounter Details Date Type Department Care Team (Late Contact Info) Description 07/17/2023 Refill [facility] #2 [place] [id number] Bishnu Dillard APRN, TRAFFIC CONTROL OFFICER #[address] [address] Medication Refill Social History Tobacco Use Types [...] Job Start Date Job End Date [employer] Not on file Not on file Not on file COVID-19 Exposure Response Date Recorded In the last 10 days, have azael u been in contact with someone who was confirmed or suspected to have Coronavirus/COVID-19? No / Unsure 06/18/2023 12:32 PM CDT documented as of this encounter Miscellaneous Notes * Telephone Encounter - Margarita Bautista RN - 07/18/2023 7:11 AM CDT PDMP 06/08/23 Medication failed the protocol, provider to review and approve the medication order if appropriate. Requested Prescriptions Pending Prescriptions Disp Refills HYDROcodone-acetaminophen (NORCO) 5-325 MG Tablet [Pharmacy Med Name: HYDROCODONE-ACETAMINOPHE 5-325 TABS] 60 Tablet 0 Sig: TAKE ONE TABLET BY MOUTH TWICE A DAY NEEDED FOR MODERATE OR MORE SEVERE PAIN Not Delegated - Opioid Combinations Protocol Failed - 07/17/2023 1:06 PM Failed - This refill cannot be delegated Passed - Visit with relevant provider in past 12 months or upcoming 90 days Recent Visits Date Type Provider Dept 06/21/23 Telemedicine Titi Hui MD [facility] [place] 06/08/23 Office Visit Bishnu Dillard APRN, LOREN [facility] [place] 01/17/23 Office Visit Titi Hui MD [facility] [place] 09/22/22 Office Visit Rose Marie Dennis APRN, TRAFFIC CONTROL OFFICER [facility] Showing recent visits within past 365 days and meeting all other requirements Future Appointments Date Type Provider Dept 10/08/23 Appointment Titi Hui MD [facility] [place] Showing future appointments within next 90 days and meeting all other requirements documented in this encounter Plan of Treatment Upcoming Encounters Date Type Department Care Team (Late st Contact Info) Description 08/05/2025 4:15 PM RESIDENTIAL MENTAL HEALTH WORKER Office Visit [facility] - Family Medicine - [place] [address] [place] [address] Titi Hui MD [address] [place] [address] 08/10/2025 4:00 PM RESIDENTIAL MENTAL HEALTH WORKER [facility] #[address] [place] [address] Melissa Swanson APRN, TRAFFIC CONTROL OFFICER #2 [facility] [address] [place] [address] documented as of this encounter Visit Diagnoses Diagnosis Chronic joint pain Pain in joint, site unspecified documented in this encounter Additional Health Concerns Infection Onset Date Last Indicated Resolved Time COVID - 19 09/12/2023 09/12/2023 09/22/2023 12:1 6 AM RESIDENTIAL MENTAL HEALTH WORKER Assessment Noted Time PHQ-9 Depression Total Score: 0 03/22/20 21 9:00 AM CDT documented as of this encounter Care Teams Program Professional Relationship Specialty Start Date End Date Titi Hui MD [address] [place] [address] PCP - General Family Medicine 02/15/17 Melissa Swanson APRN, TRAFFIC CONTROL OFFICER #[address] [address] Nurse Practitioner Advanced Practice Nurse 02/04/24 documented as of this encounter
--- OUTSIDE RECORDS SUMMARY | 2025-07-23 21:07 | XMS_ITS | Encounter Summary ---
Author Organization [facility] Address [address] [place] [address] Phone Care Team Providers Care Concrete Analyst Name Role Phone Titi Hui MD Primary Care Provider [phone] Melissa Swanson APRN, HIGHWAY MAINTENANCE TECHNICIAN Unavailable [phone] Reason for Visit * Reason Comments Medication Refill Encounter Details Date Type Department Care Team (Late Contact Info) Description 01/16/2024 Refill [facility] #2 [place] [address] Titi Hui MD [address] [address] Medication Refill Social History Tobacco Use Types [...] Job Start Date Job End Date [employer] Not on file Not on file Not on file documented as of this encounter Miscellaneous Notes * Telephone Encounter - Margarita Bautista RN - 01/16/2024 11:25 AM CDT PDMP 12/13/23 Medication failed the protocol, provider to review and approve the medication order if appropriate. Requested Prescriptions Pending Prescriptions Disp Refills HYDROcodone-acetaminophen (NORCO) 5-325 MG Tablet [Pharmacy Med Name: HYDROCODONE-ACETAMINOPHE 5-325 TABS] 60 Tablet 0 Sig: TAKE ONE TABLET BY MOUTH TWICE A DAY NEEDED FOR MODERATE OR MORE SEVERE PAIN Not Delegated - Opioid Combinations Protocol Failed - 01/16/2024 11:11 AM Failed - This refill cannot be delegated Passed - Visit with relevant provider in past 12 months or upcoming 90 days Recent Visits Date Type Provider Dept 12/11/23 Office Visit [facility] [place] 10/08/23 Telemedicine Titi Hui MD [facility] [place] 09/12/23 Office Visit Rose Marie Dennis PULMONARY CARE NURSE, HIGHWAY MAINTENANCE TECHNICIAN [facility] 06/21/23 Telemedicine Titi Hui MD [facility] [place] 06/08/23 Office Visit Bishnu Dillard APRN, [facility] 01/17/23 Office Visit Titi Hui MD [facility] [place] Showing recent visits within past 365 days and meeting all other requirements Future Appointments Date Type Provider Dept 03/12/24 Appointment Titi uHi MD [facility] [place] Showing future appointments within next 90 days and meeting all other requirements documented in this encounter Plan of Treatment Upcoming Encounters Date Type Department Care Team (Late st Contact Info) Description 08/05/2025 4:15 PM [facility] Office Visit [facility] - Family Medicine - [place] [address] [place] [id number] Titi Hui MD #[address] [place] [address] 08/10/2025 4:00 PM [facility] Office Visit [facility] - Pulmonology & Sleep Medicine [facility] #2 [place] [address] Melissa Swanson APRN, HIGHWAY MAINTENANCE TECHNICIAN #[address] [facility] [address] [place] [address] documented as of this encounter Visit Diagnoses Diagnosis Chronic joint pain Pain in joint, site unspecified documented in this encounter Additional Health Concerns Assessment Noted Time PHQ-9 Depression Total Score: 0 03/22/20 21 9:00 AM CDT documented as of this encounter Care Teams Concrete Analyst Relationship Specialty Start Date End Date Titi Hui MD #[address] [address] PCP - General Family Medicine 02/15/17 Melissa Swanson APRN, HIGHWAY MAINTENANCE TECHNICIAN #[address] [facility] [address] [place] [address] Nurse Practitioner Advanced Practice Nurse 02/04/24 documented as of this encounter
--- OUTSIDE RECORDS SUMMARY | 2025-07-23 21:07 | XMS_ITS | Encounter Summary ---
Author Organization [facility] Address [address] [place] [address] Phone Care Team Providers Care Manager Icu Name Role Phone Titi Hui MD Primary Care Provider [phone] Melissa Swanson APRN, DIESEL DRAGLINE OPERATOR Unavailable [phone] Reason for Visit * Reason Comments Medication Refill Encounter Details Date Type Department Care Team (Late Contact Info) Description 10/31/2023 Refill [facility] Family Medicine [facility] #2 [place] [address] Titi Hui MD #[address] [address] Medication Refill Social History Tobacco Use Types [...] encounter Miscellaneous Notes * Telephone Encounter - Kinza Stringer RN - 10/31/2023 4:15 PM PROJECT PRODUCTION ENGINEER Med list reviewed PDMP 10-01-23, 30 days Last UDS was 01-17-23 (hydrocodone - not present) Upcoming OV 12-11-23 Medication failed the protocol, provider to review and approve the medication order if appropriate. Requested Prescriptions Pending Prescriptions Disp Refills HYDROcodone-acetaminophen (NORCO) 5-325 MG Tablet [Pharmacy Med Name: HYDROCODONE-ACETAMINOPHE 5-325 TABS] 60 Tablet 0 Sig: TAKE ONE TABLET BY MOUTH TWICE A DAY NEEDED FOR MODERATE OR MORE SEVERE PAIN Not Delegated - Opioid Combinations Protocol Failed - 10/31/2023 11:46 AM Failed - This refill cannot be delegated Passed - Visit with relevant provider in past 12 months or upcoming 90 days Recent Visits Date Type Provider Dept 10/08/23 Telemedicine Titi Hui MD [facility] 09/12/23 Office Visit Rose Marie Dennis, CHANGE MANAGEMENT DIRECTOR, DIESEL DRAGLINE OPERATOR [facility] 06/21/23 Telemedicine Titi Hui MD [facility] [place] 06/08/23 Office Visit Bishnu Dillard CHANGE MANAGEMENT DIRECTOR, DIESEL DRAGLINE OPERATOR [facility] 01/17/23 Office Visit Titi Hui MD [facility] [place] Showing recent visits within past 365 days and meeting all other requirements Future Appointments Date Type Provider Dept 12/11/23 Appointment Titi Hui MD [facility] [place] Showing future appointments within next 90 days and meeting all other requirements ECT PRODUCTION ENGINEER documented in this encounter Plan of Treatment Upcoming Encounters Date Type Department Care Team (Late st Contact Info) Description 08/05/2025 4:15 PM PROJECT PRODUCTION ENGINEER Office Visit [facility] - Family Medicine - [place] [address] [place] [address] Titi Hui MD #2 [facility] [address] 08/10/2025 4:00 PM PROJECT PRODUCTION ENGINEER Office Visit [facility] - Pulmonology & Sleep Medicine - [place] [address] [place] [address] Melissa Swanson APRN, DIESEL DRAGLINE OPERATOR #2 [facility] [address] [place] [address] documented as of this encounter Visit Diagnoses Diagnosis Chronic joint pain Pain in joint, site unspecified documented in this encounter Additional Health Concerns Assessment Noted Time PHQ-9 Depression Total Score: 0 03/22/20 21 9:00 AM CDT documented as of this encounter Care Teams Manager Icu Relationship Specialty Start Date End Date Titi Hui MD [address]2 [place] [address] PCP - General Family Medicine 02/15/17 Melissa Sawnson APRN, DIESEL DRAGLINE OPERATOR #2 [facility] [address] [place] [address] Nurse Practitioner Advanced Practice Nurse 02/04/24 documented as of this encounter
--- OUTSIDE RECORDS SUMMARY | 2025-07-23 21:07 | XMS_ITS | Encounter Summary ---
Author Organization [facility] Address [address] [place] [address] Phone Care Team Providers Care Retort Pre Cooker Name Role Phone Titi Hui MD Primary Care Provider [phone] Melissa Swanson APRN, BILL PEDDLER Unavailable [phone] Reason for Visit * Reason Comments Medication Refill Encounter Details Date Type Department Care Team (Late Contact Info) Description 11/30/2023 Refill [facility] #2 [place] [address] Titi Hui MD #[address] [address] Medication Refill Social History Tobacco Use Types [...] Industry Job Start Date Job End Date [employer] Not on file Not on file Not on file documented as of this encounter Miscellaneous Notes * Telephone Encounter - Margarita Bautista RN - 11/30/2023 1:13 PM CDT PDMP 11/01/23 Medication failed the protocol, provider to review and approve the medication order if appropriate. Requested Prescriptions Pending Prescriptions Disp Refills HYDROcodone-acetaminophen (NORCO) 5-325 MG Tablet [Pharmacy Med Name: HYDROCODONE-ACETAMINOPHE 5-325 TABS] 60 Tablet 0 Sig: TAKE ONE TABLET BY MOUTH TWICE A DAY NEEDED FOR MODERATE OR MORE SEVERE PAIN (DISPENSED [id number] DAYS SUPPLY) Not Delegated - Opioid Combinations Protocol Failed - 11/30/2023 9:19 AM Failed - This refill cannot be delegated Passed - Visit with relevant provider in past 12 months or upcoming 90 days Recent Visits Date Type Provider Dept 10/08/23 Telemedicine Titi Hui MD [facility] [place] 09/12/23 Office Visit Rose Marie Dennis APRN, BILL PEDDLER [facility] 06/21/23 Telemedicine Titi Hui MD [facility] [place] 06/08/23 Office Visit Bishnu Dillard APRN, BILL PEDDLER [facility] 01/17/23 Office Visit Titi Hui MD [facility] [place] Showing recent visits within past 365 days and meeting all other requirements Future Appointments Date Type Provider Dept 12/11/23 Appointment Titi Hui MD [facility] [place] Showing future appointments within next 90 days and meeting all other requirements documented in this encounter Plan of Treatment Upcoming Encounters Date Type Department Care Team (Late st Contact Info) Description 08/05/2025 4:15 PM SOLUTIONS MANAGER Office Visit [facility] Medical Group - Family Medicine - [place] [address] [place] [address] Titi Hui MD [address] [address] 08/10/2025 4:00 PM SOLUTIONS MANAGER Office Visit [facility] - Pulmonology & Sleep Medicine [facility] [address] [place] [address] Melissa Swanson APRN, BILL PEDDLER #2 [facility] [address] [place] [address] documented as of this encounter Visit Diagnoses Diagnosis Chronic joint pain Pain in joint, site unspecified documented in this encounter Additional Health Concerns Assessment Noted Time PHQ-9 Depression Total Score: 0 03/22/20 21 9:00 AM CDT documented as of this encounter Care Teams Retort Pre Cooker Relationship Specialty Start Date End Date Titi Hui MD #2 [facility] [address] [place] [address] PCP - General Family Medicine 02/15/17 Melissa Swanson APRN, BILL PEDDLER #2 [facility] [address] [place] [address] Nurse Practitioner Advanced Practice Nurse 02/04/24 documented as of this encounter
--- OUTSIDE RECORDS SUMMARY | 2025-07-23 21:07 | XMS_ITS | Encounter Summary ---
Author Organization [facility] Address [address] [place] [address] Phone Care Team Providers Care Data Processing Supervisor Name Role Phone Titi Hui MD Primary Care Provider [phone] Melissa Swanson APRN, CONCRETE CRUSHER LOADER OPERATOR Unavailable [phone] Reason for Visit * Reason Comments Medication Refill Encounter Details Date Type Department Care Team (Late Contact Info) Description 08/29/2023 Refill [facility] #2 [place] [address] Titi Hui MD #[address] [address] Medication Refill Social History Tobacco Use Types [...] Industry Job Start Date Job End Date [employer] Not on file Not on file Not on file documented as of this encounter Miscellaneous Notes * Telephone Encounter - Kinza Stringer RN - 08/29/2023 12:31 PM MECHANIC ASSISTANT PDMP 07-19-23, 30 days Medication failed the protocol, provider to review and approve the medication order if appropriate. Requested Prescriptions Pending Prescriptions Disp Refills HYDROcodone-acetaminophen (NORCO) 5-325 MG Tablet [Pharmacy Med Name: HYDROCODONE-ACETAMINOPHE 5-325 TABS] 60 Tablet 0 Sig: TAKE ONE TABLET BY MOUTH TWICE A DAY NEEDED FOR MODERATE OR MORE SEVERE PAIN Not Delegated - Opioid Combinations Protocol Failed - 08/29/2023 12:04 PM Failed - This refill cannot be delegated Passed - Visit with relevant provider in past 12 months or upcoming 90 days Recent Visits Date Type Provider Dept 06/21/23 Telemedicine Titi Hui MD [facility] 06/08/23 Office Visit Bishnu Dillard APRN, [place] [facility] 01/17/23 Office Visit Titi Hui MD [facility] [place] 09/22/22 Office Visit Rose Marie Dennis AIRLINE PILOT FLIGHT INSTRUCTOR, [facility] Showing recent visits within past 365 days and meeting all other requirements Future Appointments Date Type Provider Dept 10/08/23 Appointment Titi Hui MD [facility] Showing future appointments within next 90 days and meeting all other requirements ANIC ASSISTANT documented in this encounter Plan of Treatment Upcoming Encounters Date Type Department Care Team (Late st Contact Info) Description 08/05/2025 4:15 PM MECHANIC ASSISTANT [facility] Visit [facility] - Family [facility] - [place] [address] [place] [address] Titi Hui MD [address] [facility] [place] [address] [address] 08/10/2025 4:00 PM MECHANIC ASSISTANT Office Visit [facility] - Pulmonology & Sleep Medicine - [place] [address] [place] [address] Melissa Swanson APRN, CONCRETE CRUSHER LOADER OPERATOR #2 [facility] [address] [place] [address] documented as of this encounter Visit Diagnoses Diagnosis Chronic joint pain Pain in joint, site unspecified documented in this encounter Additional Health Concerns Infection Onset Date Last Indicated Resolved Time COVID - 19 09/12/2023 09/12/2023 09/22/2023 12:1 6 AM MECHANIC ASSISTANT Assessment Noted Time PHQ-9 Depression Total Score: 0 03/22/20 21 9:00 AM CDT documented as of this encounter Care Teams Data Processing Supervisor Relationship Specialty Start Date End Date Titi Hui MD #2 [facility] [address] [place] [address] PCP - General Family Medicine 02/15/17 Melissa Swanson APRN, [place] #2 [facility] [address] [place] [address] Nurse Practitioner Advanced Practice Nurse 02/04/24 documented as of this encounter
--- OUTSIDE RECORDS SUMMARY | 2025-07-23 21:07 | XMS_ITS | Encounter Summary ---
Author Organization [facility] Address [address] [place] [address] Phone Care Team Providers Care Special Education Supervisor Name Role Phone Titi Hui MD Primary Care Provider [phone] Melissa Swanson APRN, HAM MARKER Unavailable [phone] Reason for Visit * Reason Comments Medication Refill Encounter Details Date Type Department Care Team (Late Contact Info) Description 02/22/2024 Refill [facility] - Family Medicine [facility] #2 [place] [address] Titi Hui MD #[address] [address] Medication Refill Social History Tobacco Use Types [...] Industry Job Start Date Job End Date [employer] Not on file Not on file Not on file documented as of this encounter Miscellaneous Notes * Telephone Encounter - Margarita Bautista RN - 02/22/2024 12:19 PM CDT PDMP 01/25/24 Medication failed the protocol, provider to review and approve the medication order if appropriate. Requested Prescriptions Pending Prescriptions Disp Refills HYDROcodone-acetaminophen (NORCO) 5-325 MG Tablet [Pharmacy Med Name: HYDROCODONE-ACETAMINOPHE 5-325 TABS] 60 Tablet 0 Sig: TAKE ONE TABLET BY MOUTH TWICE A DAY NEEDED FOR MODERATE OR MORE SEVERE PAIN Not Delegated - Opioid Combinations Protocol Failed - 02/22/2024 11:16 AM Failed - This refill cannot be delegated Passed - Visit with relevant provider in past 12 months or upcoming 90 days Recent Visits Date Type Provider Dept 12/11/23 [facility] [place] [facility]/08/23 Telemedicine [facility] MD [facility] [place] 09/12/23 Office Visit Rose Marie Dennis APRN, HAM MARKER [facility] 06/21/23 Telemedicine [facility]23 Office Visit Bishnu Dillard APRN, [facility] Showing recent visits within past 365 days and meeting all other requirements Future Appointments Date Type Provider Dept 03/12/24 Appointment [facility] future appointments within next 90 days and meeting all other requirements documented in this encounter Plan of Treatment Upcoming Encounters Date Type Department Care Team (Late st Contact Info) Description 08/05/2025 4:15 PM RIVER DRIVER Office Visit [facility] Medical Group - Family Medicine - [place] #[address] [place] [address] Titi Hui MD #[address] [address] 08/10/2025 4:00 PM RIVER DRIVER Office Visit [facility] - Pulmonology & Sleep Medicine [facility] #2 [place] [address] Melissa Swanson APRN, HAM MARKER #2 [facility] [address] [place] [address] documented as of this encounter Visit Diagnoses Diagnosis Chronic joint pain Pain in joint, site unspecified documented in this encounter Additional Health Concerns Assessment Noted Time PHQ-9 Depression Total Score: 0 03/22/20 21 9:00 AM CDT documented as of this encounter Care Teams Special Education Supervisor Relationship Specialty Start Date End Date Titi Hui MD #2 [facility] [address] [place] [address] PCP - General Family Medicine 02/15/17 Melissa Swanson APRN, HAM MARKER #2 [facility] [address] [place] [address] Nurse Practitioner Advanced Practice Nurse 02/04/24 documented as of this encounter
--- OUTSIDE RECORDS SUMMARY | 2025-07-23 21:07 | XMS_ITS | Clinical Summary ---
Author Organization [address] [facility] [place] Address [address] [place] [address] Care Team Providers Care Material Stress Tester Name Role Phone Titi Hui MD Primary Care Provider [phone] Allergies No known active allergies Medications acetaminophen (TYLENOL) 500 mg tablet Take 1,000 mg by mouth every 6 (six) hours as needed Active albuterol HFA (PROVENTIL HFA,VENTOLIN HFA,PROAIR HFA) 90 mcg/actuation inhaler Inhale 2 puffs every 4 (four) hours as needed 7 Active cyanocobalamin (Vitamin B-12) 500 mcg tablet Take 500 mcg by mouth daily 9 Active ibuprofen (ADVIL,MOTRIN) 800 mg tabletIndicatio ns:Anti-inflamm atory,Pain Take 1 tablet (800 mg total) by mouth every 8 (eight) hours as needed for pain 90 tablet 9 Active Additional Information Patient not taking.Reported on 07/11/2021 HYDROcodone-germania taminophen (NORCO) 5-325 mg per tabletIndicatio ns:Pain Take 1-2 tablets every 6 hours as needed for pain 50 tablet 1 Active Additional Information Patient not taking.Reported on 07/11/2021 ofloxacin (FLOXIN) 0.3 % otic solution Active Active Problems Problem Noted Date Diagnosed Date Close exposure to COVID-19 virus 06/29/2021 Primary osteoarthritis of left foot 04/28/2019 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 04/28/2019 Posterior tibialis tendon insufficiency 02/27/20 19 Tightness of left heel cord 02/26/2019 Hypertrophy of inferior nasal turbinate 07/03/20 18 LOREN (obstructive sleep apnea) 07/03/2018 PNAR (perennial non-allergic rhinitis) 8 B12 deficiency 02/28/2017 Vitamin D deficiency 02/28/2017 Chronic fatigue 02/15/2017 Chronic pain of right knee 02/15/2017 Family history of diabetes mellitus (DM) 017 Morbid obesity 02/15/2017 Snoring 02/15/2017 Adiposity 01/31/2014 Overview (12/21/2016): OBESITY NOS Immunizations Immunization Administration Dates Next Due Influenza, Quadrivalent, Spl it, Preservative Free, Intramuscular 08/01/2019,09/18/2018 Influenza, Trivalent, IM (MDV) 07/18/2020 Surgical History Surgery Date Site/Laterality Comments KNEE SURGERY right knee scope x2 VASECTOMY ANKLE ARTHRODESIS 02/25/2019 Left FOOT SURGERY 01/27/2020 Left fusion Medical History Medical History Date Comments Sleep apnea Delayed emergence from general anesthesia after one of his knee scopes 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, left Obesity Family History Medical History Relation Name Comments Arthritis Father Diabetes Father Hypertension Father Hypertension; Cancer Mother Diabetes Mother Stomach cancer Mother cancer, gastr ic; Diabetes Paternal Grandmother Diabete s mellitus; Heart failure Paternal Grandmother Conges tive heart failure; Relation Name Status Comments Father Alive Mother Paternal Grandmother Alive Social History Tobacco Use Types Packs/Day Years Used Date Smoking Tobacco: Never Smokeless Tobacco: Never Alcohol Use Standard Drinks/Week Comments No 0 (1 standard drink = 0.6 oz pur e alcohol) AUDIT-C Answer Date Recorded Q1: How often do you have a drink containing alc ohol? 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 Not on file Not on file Last Filed Vital Signs Vital Sign Reading Time Taken Comments Blood Pressure 129/66 06/03/2021 11:05 AM CDT Pulse 73 06/03/2021 11:10 AM CDT Temperature 36.4 C (97.5 F) 06/03/2021 10:24 AM CDT Respiratory Rate 11 06/03/2021 11:10 AM CDT Oxygen Saturation 93% 06/03/2021 11:10 AM CDT Inhaled Oxygen Concentration - - Weight 161.5 kg (356 lb) 10/17/2021 3:21 PM INTENSIVE CARE AMBULANCE PARAMEDIC Height 185.4 cm (6' 1) 10/17/2021 3:21 PM INTENSIVE CARE AMBULANCE PARAMEDIC Body Mass Index 46.97 10/17/2021 3:21 PM INTENSIVE CARE AMBULANCE PARAMEDIC Plan of Treatment Not on file Medical Devices Implanted Type Area Outpatient Psychiatrist Device Identifier Shelf Expiration Date Model / Serial / Lot [employer] Inc [id number] Augment Graft 3cc Bone - [id number] Implanted:Qty: 1 on 02/25/2019 by Paresh Cazares Jr., MD at [facility] Left: Ankle Organic Society Inc 12/16/2019 [id number] / / [id number] Organic Society Inc [id number] Ortholoc Darco 6.5mm 60mm 16mm Cannulated Foot Ankle Screw Bone - [id number] Implanted:Qty: 1 on 02/25/2019 by Paresh Cazares Jr., MD at [facility] Left: Ankle Volusion Technology Inc [id number] / / SpinX Technologies Medical Technology Inc [id number] Salvation Gianluca Ortholoc 3di 2.5mm 150mm Wire Fixation - [id number] Implanted:Qty: 2 on 02/25/2019 by Paresh Cazares Jr., MD at [facility] Left: Ankle [employer] [id number] / / Wire Fxatn 270mm 3mm Gianluca Long Smooth Tip Head Darco - [id number] Implanted:Qty: 2 on 02/25/2019 by Paresh Cazares Jr., MD at [facility] Left: Ankle Parsons [employer] Inc [id number] / / Parsons [employer] Inc [id number] Darco 7.5mm 100mm 16mm Head Screw Bone - [id number] Implanted:Qty: 1 on 02/25/2019 by Paresh aCzares Jr., MD at [facility] Left: Ankle [employer] [id number] / / Parsons [employer] Inc [id number] Dart-Fire 4mm 34mm Self Drill Self Tap Cannulated Headed Foot - [id number] Implanted:Qty: 1 on 02/25/2019 by Paresh Cazares Jr., MD at [facility] Left: Ankle [employer] [id number] / / [employer] Inc [id number] Darco 6.5mm 85mm 16mm Head Screw Bone - [id number] Implanted:Qty: 1 on 02/25/2019 by Paresh Cazares Jr., MD at [facility] Left: Ankle [employer] [id number] / / Washer Ortho 6.5/7.5 Mm Screw - [id number] Implanted:Qty: 1 on 02/25/2019 by Paresh Cazares Jr., MD at [facility] Left: Ankle [employer] [id number] / / [employer] Inc [id number] Darco 7.5mm 110mm 16mm Head Foot Screw Bone - [id number] Implanted:Qty: 1 on 02/25/2019 by Paresh Cazares Jr., MD at [facility] Left: Ankle [employer] [id number] / / Parsons [employer] Inc [id number] Augment Graft 3cc Bone - [id number] Implanted:Qty: 1 on 01/27/2020 by Paresh Cazares Jr., MD at [facility] Vol[employer] Inc 08/16/2021 [id number] / / [id number] Pars[employer] Inc [id number] Darco 6.5mm 70mm 16mm Head Screw Bone - [id number] Implanted:Qty: 1 on 01/27/2020 by Paresh Cazares Jr., MD at [facility] Left: Foot [employer] Inc [id number] / / Orthohelix Director Of Event Sales-002-Pm Ortholink Foot Ankle Standard Plate Bone Nonsterile Latex Free - [id number] Implanted:Qty: 1 on 01/27/2020 by Paresh Cazares Jr., MD at [facility] Left: Foot Orthohelix SENIOR JAVA SOFTWARE ENGINEER-002-PM / / Orthohelix [id number] 3.5mm 35mm Lock Fix Angle Foot Ankle Screw Bone Nonsterile - [id number] Implanted:Qty: 1 on 01/27/2020 by Paresh Cazares Jr., MD at [facility] Left: Foot Orthohelix [id number] / / Orthohelix [id number] Maxlock Extreme 3.5mm 32.5mm Foot Ankle Screw Bone Nonsterile - [id number] Implanted:Qty: 1 on 01/27/2020 by Paresh Cazares Jr., MD at [facility] Left: Foot Orthohelix [id number] / / Volusion Technology Inc [id number] Kit Bone Graft Augment 1.5cc - [id number] Implanted:Qty: 1 on 06/03/2021 by Paresh Cazares Jr., MD at [facility] Left: Foot [employer] Technology Inc 03/16/2023 [id number] / / [id number] SpinX Technologies Medical Technology Inc [id number] Staple Bone Fuseforce L20mm X W20mm Hand Sterile - [id number] Implanted:Qty: 2 on 06/03/2021 by Paresh Cazares Jr., MD at [facility] Left: Foot [employer] Inc [id number] 04/21/2026 [id number] / / [id number] Spin[employer] Medical [employer] Inc [id number] Staple Bone Fuseforce L20mm X W20mm Hand Sterile - [id number] Implanted:Qty: 1 on 06/03/2021 by Paresh Cazares Jr., MD at [facility] Left: Foot [employer] Inc 08/04/2025 [id number] / / [id number] Explanted Type Area Outpatient Psychiatrist Device Identifier Shelf Expiration Date Model / Serial / Lot [employer] Society Inc [id number] Gianluca 1.4mm 150mm Trocar Wire Fixation - [id number] Explanted:Qty: 1 on 02/25/2019 at [facility] Left: Ankle [employer] Inc [id number] / / Volusion Technology Inc [id number] Gianluca 2.5mm Wire Fixation - [id number] Explanted:Qty: 1 on 01/27/2020 at [facility] Left: Foot Gipis [id number] / / Insurance [facility] AETNA SIG [id number] Advance Directives For more information, please contact: [phone] * Full Code (Latest Code Status on File) Date Activated Date Inactivated Comments 01/27/2020 2:48 PM 01/28/2020 7:58 PM * Full Code Date Activated Date Inactivated Comments 02/25/2019 1:24 PM 02/27/2019 6:37 PM Care Teams Material Stress Tester Relationship Specialty Start Date End Date Titi Hui MD [address] [place] [address] PCP - General Family Medicine 11/05/18
--- OUTSIDE RECORDS SUMMARY | 2025-07-23 21:07 | XMS_ITS | Encounter Summary ---
Author Organization [facility] Address [address] [place] [address] Phone Care Team Providers Care Tugger Operator Name Role Phone Titi Hui MD Primary Care Provider [phone] Melissa Swanson APRN, ASSISTANT SCIENTIST Unavailable [phone] Reason for Visit * Reason Comments Medication Refill Encounter Details Date Type Department Care Team (Late Contact Info) Description 10/01/2023 [facility]ill [facility] [address] [place] [address] Titi Hui MD #[address] [address] Medication Refill Social History Tobacco Use Types [...] Industry Job Start Date Job End Date [email or web address] Not on file Not on file Not on file documented as of this encounter Miscellaneous Notes * Telephone Encounter - Margarita Bautista RN - 10/01/2023 2:04 PM CST PDMP [place] 08/29/23 Medication failed the protocol, provider to review and approve the medication order if appropriate. Requested Prescriptions Pending Prescriptions Disp Refills ibuprofen (MOTRIN) 800 MG Tablet [Pharmacy Med Name: IBUPROFEN 800MG TABS] 180 Tablet 1 Sig: TAKE ONE TABLET BY MOUTH TWO TIMES A DAY NEEDED FOR MODERATE OR SEVERE PAIN NSAIDs Protocol Passed - 10/01/2023 9:30 AM Passed - Normal serum creatinine in past 12 months CREATININE, BLOOD Date Value Ref Range Status 11/01/2022 0.83 0.80 - 1.30 mg/dL Final Passed - Visit with relevant provider in past 12 months or upcoming 90 days Recent Visits Date Type Provider Dept 09/12/23 Office Visit Rose Marie Dennis APRN, ASSISTANT SCIENTIST [facility] [place] 06/21/23 Telemedicine Titi Hui MD [facility] [place] 06/08/23 Office Visit Bishnu Dillard APRN, ASSISTANT SCIENTIST [facility] [place] 01/17/23 Office Visit Titi Hui MD [facility] [place] Showing recent visits within past 365 days and meeting all other requirements Future Appointments Date Type Provider Dept 10/08/23 Appointment Titi Hui MD [facility] [place] Showing future appointments within next 90 days and meeting all other requirements Passed - No matching NSAID med order in past 45 days No matching medication orders between 08/17/2023 2:04 PM and 10/01/2023 2:04 PM Passed - AST less than 55 or ALT less than 90 in past 12 months SGOT (AST) Date Value Ref Range Status 11/01/2022 12 <=40 U/L Final SGPT (ALT) Date Value Ref Range Status 11/01/2022 17 <=41 U/L Final Passed - HGB greater than 10 or HCT greater than 30 in past 12 months HEMOGLOBIN (HGB) Date Value Ref Range Status 11/01/2022 13.5 13.0 - 16.5 g/dL Final HEMATOCRIT (HCT) Date Value Ref Range Status 11/01/2022 43.2 38.0 - 50.0 % Final HYDROcodone-acetaminophen (NORCO) 5-325 MG Tablet [Pharmacy Med Name: HYDROCODONE-ACETAMINOPHE 5-325 TABS] 60 Tablet 0 Sig: TAKE ONE TABLET BY MOUTH TWICE A DAY NEEDED FOR MODERATE OR MORE SEVERE PAIN Not Delegated - Opioid Combinations Protocol Failed - 10/01/2023 9:30 AM Failed - This refill cannot be delegated Passed - Visit with relevant provider in past 12 months or upcoming 90 days Recent Visits Date Type Provider Dept 09/12/23 Office Visit Rose Marie Dennis, PRINTING MACHINE MECHANIC, ASSISTANT SCIENTIST [facility] 06/21/23 Telemedicine Titi Hui MD [facility] [place] 06/08/23 Office Visit Bishnu Dillard APRN, ASSISTANT SCIENTIST [facility] 01/17/23 Office Visit Titi Hui MD [facility] [place] Showing recent visits within past 365 days and meeting all other requirements Future Appointments Date Type Provider Dept 10/08/23 Appointment Titi Hui MD [facility] [place] Showing future appointments within next 90 days and meeting all other requirements ERY SCHOOL TEACHER documented in this encounter Plan of Treatment Upcoming Encounters Date Type Department Care Team (Late st Contact Info) Description 08/05/2025 4:15 PM NURSERY SCHOOL TEACHER Office Visit [facility] - Family Medicine - [place] [address] [place] [address] Titi Hui MD #[address] [facility] [address] [place] [address] 08/10/2025 4:00 PM NURSERY SCHOOL TEACHER Office Visit [facility] - Pulmonology & Sleep Medicine - [place] [address] [place] [id number] Melissa Swanson, PRINTING MACHINE MECHANIC, ASSISTANT SCIENTIST #[address] [facility] [address] [place] [address] documented as of this encounter Visit Diagnoses Diagnosis Chronic joint pain Pain in joint, site unspecified documented in this encounter Additional Health Concerns Assessment Noted Time PHQ-9 Depression Total Score: 0 03/22/20 21 9:00 AM CDT documented as of this encounter Care Teams Tugger Operator Relationship Specialty Start Date End Date Titi Hui MD #[address] [facility] [address] [place] [address] PCP - General Family Medicine 02/15/17 Melissa Swanson APRN, ASSISTANT SCIENTIST #[address] [facility] [address] [place] [address] Nurse Practitioner Advanced Practice Nurse 02/04/24 documented as of this encounter
--- OUTSIDE RECORDS SUMMARY | 2025-07-23 21:08 | XMS_ITS | Encounter Summary ---
Author Organization [facility] Address [address] [place] [address] Phone Care Team Providers Care Senior Application Software Engineer Name Role Phone Titi Hui MD Primary Care Provider [phone] Melissa Swanson APRN, GETTER OPERATOR Unavailable [phone] Reason for Visit * Reason Comments Medication Refill Encounter Details Date Type Department Care Team (Late Contact Info) Description 10/17/2022 Refill [facility] Medicine [facility] [address] [place] [address] Titi Hui MD #[address] [address] Medication Refill Social History Tobacco Use Types [...] Industry Job Start Date Job End Date [employer] Not on file Not on file Not on file COVID-19 Exposure Response Date Recorded In the last 10 days, have yo u been in contact with someone who was confirmed or suspected to have Coronavirus/COVID-19? No / Unsure 09/22/2022 2:54 PM SURTASS ANALYST documented as of this encounter Miscellaneous Notes * Telephone Encounter - Gwendolyn Amato RN - 10/17/2022 10:49 AM SURTASS ANALYST PDMP 09/16/2022 #30 Medication failed the protocol, provider to review and approve the medication order if appropriate. Requested Prescriptions Pending Prescriptions Disp Refills HYDROcodone-acetaminophen (NORCO) 5-325 MG Tablet [Pharmacy Med Name: HYDROCODONE-ACETAMINOPHE 5-325 TABS] 30 Tablet 0 Sig: TAKE ONE TABLET BY MOUTH DAILY NEEDED FOR MODERATE OR MORE SEVERE PAIN Not Delegated - Opioid Combinations Protocol Failed - 10/17/2022 10:35 AM Failed - This refill cannot be delegated Passed - Visit with relevant provider in past 12 months or upcoming 90 days Recent Visits Date Type Provider Dept 09/22/22 Office Visit Rose Marie Dennis APRN, LOREN [facility] [place] 06/20/22 Office Visit Rose Marie Dennis APRN, LOREN [facility] 05/16/22 [facility] [place] 11/14/21 Office Visit Titi Hui MD [facility] Showing recent visits within past 365 days and meeting all other requirements Future Appointments No visits were found meeting these conditions. Showing future appointments within next 90 days and meeting all other requirements ASS ANALYST documented in this encounter Plan of Treatment Upcoming Encounters Date Type Department Care Team (Late Contact Info) Description 08/05/2025 4:15 PM SURTASS ANALYST Office Visit [facility] - Family Medicine - [place] [address] [place] [address] Titi Hui MD #[address] [address] 08/10/2025 4:00 PM SURTASS ANALYST Office Visit [facility] - Pulmonology & Sleep Medicine - [place] [address] [place] [address] Melissa Swanson APRN, GETTER OPERATOR [facility] [address] [place] [address] documented as of this encounter Visit Diagnoses Diagnosis Chronic joint pain Pain in joint, site unspecified documented in this encounter Additional Health Concerns Infection Onset Date Last Indicated Resolved Time COVID - 19 06/18/2023 06/18/2023 06/28/2023 12:1 6 AM CDT COVID - 19 09/12/2023 09/12/2023 09/22/2023 12:1 6 AM SURTASS ANALYST Assessment Noted Time PHQ-9 Depression Total Score: 0 03/22/20 21 9:00 AM CDT documented as of this encounter Care Teams Senior Application Software Engineer Relationship Specialty Start Date End Date Titi Hui MD #2 [facility] [address] [place] [address] PCP - General Family Medicine 02/15/17 Melissa Swanson APRN, LOREN [address] [facility] [address] [place] [address] Nurse Practitioner Advanced Practice Nurse 02/04/24 documented as of this encounter
--- OUTSIDE RECORDS SUMMARY | 2025-07-23 21:08 | XMS_ITS | Encounter Summary ---
Author Organization [facility] Address [address] [place] [address] Phone Care Team Providers Care Stitch Marker Name Role Phone Titi Hui MD Primary Care Provider [phone] Melissa Swanson APRN, HYDROELECTRIC PRODUCTION MANAGER Unavailable [phone] Reason for Visit * Reason Comments Medication Refill Encounter Details Date Type Department Care Team (Late Contact Info) Description 09/13/2022 Refill [facility] [address] [place] [address] Titi Hui MD #[address] [address] Medication Refill Social History Tobacco Use Types [...] Industry Job Start Date Job End Date [employer] Not on file Not on file Not on file documented as of this encounter Miscellaneous Notes * Telephone Encounter - Gwendolyn Amato RN - 09/13/2022 10:16 AM TREE PULLER PDMP 07/12/2022 #30 Medication failed the protocol, provider to review and approve the medication order if appropriate. Requested Prescriptions Pending Prescriptions Disp Refills HYDROcodone-acetaminophen (NORCO) 5-325 MG Tablet [Pharmacy Med Name: HYDROCODONE-ACETAMINOPHE 5-325 TABS] 30 Tablet 0 Sig: TAKE ONE TABLET BY MOUTH DAILY NEEDED FOR MODERATE OR MORE SEVERE PAIN Not Delegated - Opioid Combinations Protocol Failed - 09/13/2022 9:20 AM Failed - This refill cannot be delegated Passed - Visit with relevant provider in past 12 months or upcoming 90 days Recent Visits Date Type Provider Dept 06/20/22 Office Visit Rose Marie Dennis, CASH GRAIN FARMER, HYDROELECTRIC PRODUCTION MANAGER [facility] 05/16/22 Telemedicine T[facility] MD [facility] 11/14/21 Office Visit [facility] Show[facility] recent visits within past 365 days and meeting all other requirements Future Appointments Date Type Provider Dept 09/26/22 Appointment T[facility] H[facility] MD [facility] Showing future appointments within next 90 days and meeting all other requirements PULLER documented in this encounter Plan of Treatment Upcoming Encounters Date Type Department Care Team (Late st Contact Info) Description 08/05/2025 4:15 PM TREE PULLER [facility] Visit [facility] - Family Medicine - [place] [address] [place] [address] Titi Hui MD #[address] [facility] [address] [address] [address] 08/10/2025 4:00 PM TREE PULLER [facility] - [place] [address] [place] [address] Melissa Swanson APRN, HYDROELECTRIC PRODUCTION MANAGER #2 [facility] [address] [place] [address] documented as of this encounter Visit Diagnoses Diagnosis Chronic joint pain Pain in joint, site unspecified documented in this encounter Additional Health Concerns Infection Onset Date Last Indicated Resolved Time COVID - 19 06/18/2023 06/18/2023 06/28/2023 12:1 6 AM CDT COVID - 19 09/12/2023 09/12/2023 09/22/2023 12:1 6 AM TREE PULLER Assessment Noted Time PHQ-9 Depression Total Score: 0 03/22/20 21 9:00 AM CDT documented as of this encounter Care Teams Stitch Marker Relationship Specialty Start Date End Date Titi Hui MD #2 [facility] [address] [place] [address] PCP - General Family Medicine 02/15/17 Melissa Swanson APRN, LOREN [facility] [address] [place] [address] Nurse Practitioner Advanced Practice Nurse 02/04/24 documented as of this encounter
--- OUTSIDE RECORDS SUMMARY | 2025-07-23 21:08 | XMS_ITS | Encounter Summary ---
Author Organization [facility] Address [address] [place] [address] Phone Care Team Providers Care Records Management Manager Name Role Phone Titi Hui MD Primary Care Provider [phone] Melissa Swanson APRN, BOREMATIC OPERATOR Unavailable [phone] Reason for Visit * Reason Comments Medication Refill Encounter Details Date Type Department Care Team (Late Contact Info) Description 09/20/2022 [facility]ill [facility] #2 [place] [address] Titi Hui MD #[address] [address] Medication Refill Social History Tobacco Use Types [...] Coronavirus/COVID-19? No / Unsure 09/22/2022 2:54 PM GARNETT MACHINE OPERATOR HELPER documented as of this encounter Miscellaneous Notes * Telephone Encounter - Carin Hernández RN - 09/20/2022 1:17 PM CST Medication failed the protocol, provider to review and approve the medication order if appropriate. Requested Prescriptions Pending Prescriptions Disp Refills ibuprofen (MOTRIN) 800 MG Tablet [Pharmacy Med Name: IBUPROFEN 800MG TABS] 180 Tablet 1 Sig: TAKE 1 TABLET BY MOUTH TWICE A DAY NEEDED FOR MODERATE OR MORE SEVERE PAIN. NSAIDs Protocol Failed - 09/20/2022 9:04 AM Failed - Normal serum creatinine in past 12 months CREATININE, BLOOD Date Value Ref Range Status 03/22/2021 0.77 (L) 0.80 - 1.30 mg/dL Final Failed - AST less than 55 or ALT less than 90 in past 12 months SGOT (AST) Date Value Ref Range Status 03/22/2021 12 <=40 U/L Final SGPT (ALT) Date Value Ref Range Status 03/22/2021 16 <=41 U/L Final Failed - HGB greater than 10 or HCT greater than 30 in past 12 months HEMOGLOBIN (HGB) Date Value Ref Range Status 03/22/2021 13.6 13.0 - 16.5 g/dL Final HEMATOCRIT (HCT) Date Value Ref Range Status 03/22/2021 43.0 38.0 - 50.0 % Final Passed - Visit with relevant provider in past 12 months or upcoming 90 days Recent Visits Date Type Provider Dept 06/20/22 Office Visit Rose Marie Dennis APRN, CNP [facility] 05/16/22 Telemedicine Titi Hui MD [facility] 11/14/21 Office Visit Titi Hui MD [facility] Showing recent visits within past 365 days and meeting all other requirements Future Appointments Date Type Provider Dept 09/22/22 Appointment Rose Marie Dennis APRN, L[facility] [place] Showing future appointments within next 90 days and meeting all other requirements Passed - No matching NSAID med order in past 45 days No matching medication orders between 08/06/2022 1:17 PM and 09/20/2022 1:17 PM ETT MACHINE OPERATOR HELPER documented in this encounter Plan of Treatment Upcoming Encounters Date Type Department Care Team (Late st Contact Info) Description 08/05/2025 4:15 PM GARNETT MACHINE OPERATOR HELPER Office Visit [facility] - [place] [address] [place] [address] Titi Hui MD #2 [facility] [address] [place] [address] 08/10/2025 4:00 PM GARNETT MACHINE OPERATOR HELPER Office Visit [facility] - Pulmonology & Sleep Medicine - [place] #[address] [place] [address] Melissa Swanson APRN, LOREN #2 [facility] [address] [place] [address] documented as of this encounter Visit Diagnoses Diagnosis Chronic joint pain Pain in joint, site unspecified documented in this encounter Additional Health Concerns Infection Onset Date Last Indicated Resolved Time COVID - 19 06/18/2023 06/18/2023 06/28/2023 12:1 6 AM CDT COVID - 19 09/12/2023 09/12/2023 09/22/2023 12:1 6 AM GARNETT MACHINE OPERATOR HELPER Assessment Noted Time PHQ-9 Depression Total Score: 0 03/22/20 21 9:00 AM CDT documented as of this encounter Care Teams Records Management Manager Relationship Specialty Start Date End Date Titi Hui MD #2 [facility] [address] [place] [address] PCP - General Family Medicine 02/15/17 Melissa Swanson APRN, BOREMATIC OPERATOR [address] [address] Nurse Practitioner Advanced Practice Nurse 02/04/24 documented as of this encounter
--- OUTSIDE RECORDS SUMMARY | 2025-07-23 21:08 | XMS_ITS | Encounter Summary ---
Author Organization [facility] Address [address] [place] [address] Phone Care Team Providers Care Patient Care Director Name Role Phone Titi Hui MD Primary Care Provider [phone] Melissa Swanson APRN, FOOD BEVERAGE SERVER Unavailable [phone] Reason for Visit * Reason Comments Medication Refill Encounter Details Date Type Department Care Team (Late Contact Info) Description 11/16/2022 Refill [facility] #2 [place] [address] Titi Hui MD #[address] [address] Medication Refill Social History Tobacco Use Types [...] Industry Job Start Date Job End Date [employer] Not on file Not on file Not on file COVID-19 Exposure Response Date Recorded In the last 10 days, have azael u been in contact with someone who was confirmed or suspected to have Coronavirus/COVID-19? No / Unsure 11/01/2022 10:59 AM FUR FINISHER SEAMSTRESS documented as of this encounter Miscellaneous Notes * Telephone Encounter - Margarita Bautista RN - 11/16/2022 4:47 PM CST PDMP [place] 10/17/22 Medication failed the protocol, provider to review and approve the medication order if appropriate. Requested Prescriptions Pending Prescriptions Disp Refills HYDROcodone-acetaminophen (NORCO) 5-325 MG Tablet [Pharmacy Med Name: HYDROCODONE-ACETAMINOPHE 5-325 TABS] 30 Tablet 0 Sig: TAKE 1 TABLET BY MOUTH ONCE DAILY NEEDED FOR MODERATE OR MORE SEVERE PAIN Not Delegated - Opioid Combinations Protocol Failed - 11/16/2022 4:30 PM Failed - This refill cannot be delegated Passed - Visit with relevant provider in past 12 months or upcoming 90 days Recent Visits Date Type Provider Dept 09/22/22 Office Visit Rose Marie Dennis, EMILY, FOOD BEVERAGE SERVER [facility] [place] 06/20/22 Office Visit Rose Marie Dennis APRN, FOOD BEVERAGE SERVER [facility] [place] 05/16/22 Telemedicine Titi Hui MD [facility] [place] Showing recent visits within past 365 days and meeting all other requirements Future Appointments Date Type Provider Dept 01/17/23 Appointment Titi Hui MD [facility] [place] Showing future appointments within next 90 days and meeting all other requirements Refused Prescriptions Disp Refills ibuprofen (MOTRIN) 800 MG Tablet [Pharmacy Med Name: IBUPROFEN 800MG TABS] 180 Tablet 1 Sig: TAKE 1 TABLET BY MOUTH TWICE A DAY NEEDED FOR MODERATE OR MORE SEVERE PAIN. NSAIDs Protocol Passed - 11/16/2022 4:30 PM Passed - Normal serum creatinine in past 12 months CREATININE, BLOOD Date Value Ref Range Status 11/01/2022 0.83 0.80 - 1.30 mg/dL Final Passed - Visit with relevant provider in past 12 months or upcoming 90 days Recent Visits Date Type Provider Dept 09/22/22 Office Visit Rose Marie Dennis APRN, LOREN [facility] [place] 06/20/22 Office Visit Rose Marie Dennis APRN, LOREN [facility] [place] 05/16/22 Telemedicine Titi Hui MD [facility] Showing recent visits within past 365 days and meeting all other requirements Future Appointments Date Type Provider Dept 01/17/23 Appointment Titi Hui MD [facility] Showing future appointments within next 90 days and meeting all other requirements Passed - No matching NSAID med order in past 45 days No matching medication orders between 10/02/2022 4:47 PM and 11/16/2022 4:47 PM Passed - AST less than 55 [...] 11/01/2022 43.2 38.0 - 50.0 % Final FINISHER SEAMSTRESS * Telephone Encounter - Margarita Bautista RN - 11/16/2022 4:46 PM CST Images from the original note were not included. Ibuprofen Dispensed Days Supply Quantity Provider Pharmacy IBUPROFEN 800 MG TABLET 09/23/2022 90 180 Tablet Titi Hui MD [facility] Pharmac... Refill on file FINISHER SEAMSTRESS documented in this encounter Plan of Treatment Upcoming Encounters Date Type Department Care Team (Late st Contact Info) Description 08/05/2025 4:15 PM FUR FINISHER SEAMSTRESS Office Visit [facility] [place] [address] [place] [address] Titi Hui MD #2 [facility] [address] [place] [address] 08/10/2025 4:00 PM FUR FINISHER SEAMSTRESS [facility] #2 [place] [address] Melissa Swanson APRN, FOOD BEVERAGE SERVER #2 [facility] [address] [place] [address] documented as of this encounter Visit Diagnoses Diagnosis Chronic joint pain Pain in joint, site unspecified documented in this encounter Additional Health Concerns Infection Onset Date Last Indicated Resolved Time COVID - 19 06/18/2023 06/18/2023 06/28/2023 12:1 6 AM CDT COVID - 19 09/12/2023 09/12/2023 09/22/2023 12:1 6 AM FUR FINISHER SEAMSTRESS Assessment Noted Time PHQ-9 Depression Total Score: 0 03/22/20 21 9:00 AM CDT documented as of this encounter Care Teams Patient Care Director Relationship Specialty Start Date End Date Titi Hui MD #2 [facility] [place] [address] PCP - General Family Medicine 02/15/17 Melissa Swanson APRN, FOOD BEVERAGE SERVER #2 [facility] [address] [place] [address] Nurse Practitioner Advanced Practice Nurse 02/04/24 documented as of this encounter
--- OUTSIDE RECORDS SUMMARY | 2025-07-23 21:08 | XMS_ITS | Encounter Summary ---
Author Organization [facility] Address [address] [place] [address] Phone Care Team Providers Care Manager Document Name Role Phone Titi Hui MD Primary Care Provider [phone] Melissa Swanson APRN, AGRICULTURAL RESEARCHER Unavailable [phone] Reason for Visit * Reason Comments Medication Refill Encounter Details Date Type Department Care Team (Late Contact Info) Description 02/27/2022 Refill [facility] #2 [place] [address] Titi Hui MD #[address] [address] Medication Refill Social History Tobacco Use Types [...] Industry Job Start Date Job End Date [employer] Not on file Not on file Not on file documented as of this encounter Miscellaneous Notes * Telephone Encounter - Margarita Bautista RN - 02/28/2022 2:23 PM CDT PDMP 12/22/21 Medication failed the protocol, provider to review and approve the medication order if appropriate. Requested Prescriptions Pending Prescriptions Disp Refills HYDROcodone-acetaminophen (NORCO) 5-325 MG Tablet [Pharmacy Med Name: HYDROCODONE-ACETAMINOPHE 5-325 TABS] 30 Tablet 0 Sig: TAKE 1 TABLET BY MOUTH DAILY NEEDED FOR MODERATE OR MORE SEVERE. Not Delegated - Opioid Combinations Protocol Failed - 02/27/2022 3:21 PM Failed - This refill cannot be delegated Passed - Visit with relevant provider in past 12 months or upcoming 90 days Recent Visits Date Type Provider Dept 11/14/21 Office Visit Titi Hui MD [facility] [place] 06/29/21 [facility] [place] 03/22/21 Office Visit Bishnu Dillard, FIELD RADIO TECHNICIAN, AGRICULTURAL RESEARCHER [facility] Showing recent visits within past 365 days and meeting all other requirements Future Appointments Date Type Provider Dept 03/02/22 Appointment T[facility] MD [facility] Show[facility] future appointments within next 90 days and meeting all other requirements documented in this encounter Plan of Treatment Upcoming Encounters Date Type Department Care Team (Late st Contact Info) Description 08/05/2025 4:15 PM SAFETY PERSON Office Visit [facility] - [facility] Medicine - [place] #[address] [place] [address] Titi Hui MD [address] [address] 08/10/2025 4:00 PM SAFETY PERSON [facility] - [place] #[address] [place] [address] Melissa Swanson APRN, LOREN #[address] [facility] [address] [place] [address] documented as of this encounter Visit Diagnoses Diagnosis Chronic joint pain Pain in joint, site unspecified documented in this encounter Additional Health Concerns Infection Onset Date Last Indicated Resolved Time COVID - 19 06/18/2023 06/18/2023 06/28/2023 12:1 6 AM CDT COVID - 19 09/12/2023 09/12/2023 09/22/2023 12:1 6 AM SAFETY PERSON Assessment Noted Time PHQ-9 Depression Total Score: 0 03/22/20 21 9:00 AM CDT documented as of this encounter Care Teams Manager Document Relationship Specialty Start Date End Date Titi Hui MD #2 [facility] [address] [place] [address] PCP - General Family Medicine 02/15/17 Melissa Swanson APRN, LOREN #[address] [facility] [address] [place] [address] Nurse Practitioner Advanced Practice Nurse 02/04/24 documented as of this encounter
--- OUTSIDE RECORDS SUMMARY | 2025-07-23 21:08 | XMS_ITS | Encounter Summary ---
Author Organization [facility] Address [address] [place] [address] Phone Care Team Providers Care Boiler Shop Mechanic Name Role Phone Titi Hui MD Primary Care Provider [phone] Melissa Swanson APRN, EBD SPECIAL EDUCATION TEACHER Unavailable [phone] Reason for Visit * Reason Comments Medication Refill Encounter Details Date Type Department Care Team (Late Contact Info) Description 05/24/2023 Refill [facility] Medicine [facility] #2 [place] [address] Titi Hui MD #[address] [address] Medication Refill Social History Tobacco Use Types [...] Industry Job Start Date Job End Date [employer] Not on file Not on file Not on file documented as of this encounter Miscellaneous Notes * Telephone Encounter - Paula Brown RMA - 05/29/2023 1:54 PM CDT Spoke with patient, he is at work and will call back, * Telephone Encounter - Bishnu Dillard APRN, CNP - 05/24/2023 6:27 PM CDT Needs appointment before refill * Telephone Encounter - Margarita Bautista RN - 05/24/2023 4:58 PM CDT PDMP 04/25/23 Medication failed the protocol, provider to review and approve the medication order if appropriate. Requested Prescriptions Pending Prescriptions Disp Refills HYDROcodone-acetaminophen (NORCO) 5-325 MG Tablet [Pharmacy Med Name: HYDROCODONE-ACETAMINOPHE 5-325 TABS] 60 Tablet 0 Sig: TAKE ONE TABLET BY MOUTH TWICE A DAY NEEDED FOR MODERATE OR MORE SEVERE PAIN Not Delegated - Opioid Combinations Protocol Failed - 05/24/2023 10:51 AM Failed - This refill cannot be delegated Passed - Visit with relevant provider in past 12 months or upcoming 90 days Recent Visits Date Type Provider Dept 01/17/23 Office Visit Titi Hui MD [facility] 09/22/22 Office Visit Rose Marie Dennis APRN, CNP [facility] 06/20/22 Office Visit Rose Marie Dennis APRN, CNP [facility] [place] Showing recent visits within past 365 days and meeting all other requirements Future Appointments No visits were found meeting these conditions. Showing future appointments within next 90 days and meeting all other requirements documented in this encounter Plan of Treatment Upcoming Encounters Date Type Department Care Team (Late st Contact Info) Description 08/05/2025 4:15 PM CD REACTOR OPERATOR [facility] Visit [facility] - Family Medicine - [place] #[address] [place] [address] Titi Hui MD #2 [facility] [address] [place] [address] 08/10/2025 4:00 PM CD REACTOR OPERATOR [facility] [place] #[address] [place] [address] Melissa Swanson APRN, EBD SPECIAL EDUCATION TEACHER #2 [facility] [address] [place] [address] documented as of this encounter Visit Diagnoses Diagnosis Chronic joint pain Pain in joint, site unspecified documented in this encounter Additional Health Concerns Infection Onset Date Last Indicated Resolved Time COVID - 19 06/18/2023 06/18/2023 06/28/2023 12:1 6 AM CDT COVID - 19 09/12/2023 09/12/2023 09/22/2023 12:1 6 AM CD REACTOR OPERATOR Assessment Noted Time PHQ-9 Depression Total Score: 0 03/22/20 21 9:00 AM CDT documented as of this encounter Care Teams Boiler Shop Mechanic Relationship Specialty Start Date End Date Titi Hui MD #2 [facility] [place] [address] PCP - General Family Medicine 02/15/17 Melissa Swanson APRN, EBD SPECIAL EDUCATION TEACHER #2 [facility] [address] [place] [address] Nurse Practitioner Advanced Practice Nurse 02/04/24 documented as of this encounter
--- OUTSIDE RECORDS SUMMARY | 2025-07-23 21:08 | XMS_ITS | Encounter Summary ---
Author Organization [facility] Address [address] [place] [address] Phone Care Team Providers Care Tree Driller Name Role Phone Titi Hui MD Primary Care Provider [phone] Melissa Swanson APRN, SOFTWARE PACKAGING ENGINEER Unavailable [phone] Reason for Visit * Reason Comments Medication Refill Encounter Details Date Type Department Care Team (Late Contact Info) Description 12/20/2022 Refill [facility] #2 [place] [address] Titi Hui MD #[address] [address] Medication Refill Social History Tobacco Use Types [...] Job Start Date Job End Date [employer] Not on file Not on file Not on file documented as of this encounter Miscellaneous Notes * Telephone Encounter - Gwendolyn Amato RN - 12/20/2022 12:16 PM CDT PDMP 11/16/22 Medication failed the protocol, provider to review and approve the medication order if appropriate. Requested Prescriptions Pending Prescriptions Disp Refills HYDROcodone-acetaminophen (NORCO) 5-325 MG Tablet [Pharmacy Med Name: HYDROCODONE-ACETAMINOPHE 5-325 TABS] 30 Tablet 0 Sig: TAKE ONE TABLET BY MOUTH EVERY DAY NEEDED FOR MODERATE OR MORE SEVERE PAIN Not Delegated - Opioid Combinations Protocol Failed - 12/20/2022 12:13 PM Failed - This refill cannot be delegated Passed - Visit with relevant provider in past 12 months or upcoming 90 days Recent Visits Date Type Provider Dept 09/22/22 Office Visit Rose Marie Dennis APRN, LOREN [facility] [place] 06/20/22 Office Visit Rose Marie Dennis APRN, SOFTWARE PACKAGING ENGINEER [facility] 05/16/22 Telemedicine Titi Hui MD [facility] [place] Showing recent visits within past 365 days and meeting all other requirements Future Appointments Date Type Provider Dept 01/17/23 Appointment Titi Hui MD [facility] [place] Showing future appointments within next 90 days and meeting all other requirements documented in this encounter Plan of Treatment Upcoming Encounters Date Type Department Care Team (Late st Contact Info) Description 08/05/2025 4:15 PM GLOST TILE SHADER Office Visit [facility] - [facility] Medicine - [place] #[address] [place] [address] Titi Hui MD #[address] [address] 08/10/2025 4:00 PM GLOST TILE SHADER [facility] - [place] #2 [place] [address] Melissa Swanson APRN, SOFTWARE PACKAGING ENGINEER #2 [facility] [address] [place] [address] documented as of this encounter Visit Diagnoses Diagnosis Chronic joint pain Pain in joint, site unspecified documented in this encounter Additional Health Concerns Infection Onset Date Last Indicated Resolved Time COVID - 19 06/18/2023 06/18/2023 06/28/2023 12:1 6 AM CDT COVID - 19 09/12/2023 09/12/2023 09/22/2023 12:1 6 AM GLOST TILE SHADER Assessment Noted Time PHQ-9 Depression Total Score: 0 03/22/20 21 9:00 AM CDT documented as of this encounter Care Teams Tree Driller Relationship Specialty Start Date End Date Titi Hui MD #2 [facility] [address] [place] [address] PCP - General Family Medicine 02/15/17 Melissa Swanson APRN, LOREN #2 [facility] [address] [place] [address] Nurse Practitioner Advanced Practice Nurse 02/04/24 documented as of this encounter
--- OUTSIDE RECORDS SUMMARY | 2025-07-23 21:08 | XMS_ITS | Encounter Summary ---
Author Organization [facility] Address [address] [place] [address] Phone Care Team Providers Care Aircraft Fueler Name Role Phone Titi Hiu MD Primary Care Provider [phone] Melissa Swanson APRN, BINDERY MACHINE SETTER/SET UP OPERATOR Unavailable [phone] Reason for Visit * Reason Comments Medication Refill Encounter Details Date Type Department Care Team (Late Contact Info) Description 04/24/2023 Refill [facility] #2 [place] [address] Titi Hui MD #[address] [address] Medication Refill Social History Tobacco Use Types [...] Job Start Date Job End Date [employer] Not on file Not on file Not on file documented as of this encounter Miscellaneous Notes * Telephone Encounter - Kinza Stringer RN - 04/24/2023 9:50 AM CDT Per PDMP, dispensed 03/23/2023 as 30-day supply Medication failed the protocol, provider to review and approve the medication order if appropriate. Requested Prescriptions Pending Prescriptions Disp Refills HYDROcodone-acetaminophen (NORCO) 5-325 MG Tablet [Pharmacy Med Name: HYDROCODONE-ACETAMINOPHE 5-325 TABS] 60 Tablet 0 Sig: TAKE ONE TABLET BY MOUTH TWO TIMES A DAY NEEDED FOR MODERATE OR MORE SEVERE PAIN Not Delegated - Opioid Combinations Protocol Failed - 04/24/2023 9:17 AM Failed - This refill cannot be delegated Passed - Visit with relevant provider in past 12 months or upcoming 90 days Recent Visits Date Type Provider Dept 01/17/23 Office Visit Titi Hui MD [facility] [place] 09/22/22 Office Visit Rose Marie Dennis APRN, BINDERY MACHINE SETTER/SET UP OPERATOR [facility] Office Visit Rose Marie Dennis APRN, BINDERY MACHINE SETTER/SET UP OPERATOR [facility]22 Telemedicine Titi Hui MD [facility] Showing recent visits within past 365 days and meeting all other requirements Future Appointments No visits were found meeting these conditions. Showing future appointments within next 90 days and meeting all other requirements documented in this encounter Plan of Treatment Upcoming Encounters Date Type Department Care Team (Late st Contact Info) Description 08/05/2025 4:15 PM APRON TRIMMER Office Visit [facility] - Family Medicine - [place] #[address] [place] [address] Titi Hui MD #[address] [address] 08/10/2025 4:00 PM APRON TRIMMER Office Visit [facility] - Pulmonology & Sleep Medicine [facility] #[address] [place] [address] Melissa Swanson APRN, BINDERY MACHINE SETTER/SET UP OPERATOR #2 [facility] [address] [place] [address] documented as of this encounter Visit Diagnoses Diagnosis Chronic joint pain Pain in joint, site unspecified documented in this encounter Additional Health Concerns Infection Onset Date Last Indicated Resolved Time COVID - 19 06/18/2023 06/18/2023 06/28/2023 12:1 6 AM CDT COVID - 19 09/12/2023 09/12/2023 09/22/2023 12:1 6 AM APRON TRIMMER Assessment Noted Time PHQ-9 Depression Total Score: 0 03/22/20 21 9:00 AM CDT documented as of this encounter Care Teams Aircraft Fueler Relationship Specialty Start Date End Date Titi Hui MD #2 [facility] [address] [place] [address] PCP - General Family Medicine 02/15/17 Melissa Swanson APRN, LOREN #2 [facility] [address] [place] [address] Nurse Practitioner Advanced Practice Nurse 02/04/24 documented as of this encounter
--- OUTSIDE RECORDS SUMMARY | 2025-07-23 21:08 | XMS_ITS | Encounter Summary ---
Author Organization [facility] Address [address] [place] [address] Phone Care Team Providers Care Warp Tying Machine Knotter Name Role Phone Titi Hui MD Primary Care Provider [phone] Melissa Swanson APRN, HAND CIGAR MAKING SUPERVISOR Unavailable [phone] Reason for Visit * Reason Comments Medication Refill Encounter Details Date Type Department Care Team (Late Contact Info) Description 02/16/2023 Refill [facility] [address] [place] [address] Titi Hui MD #[address] [address] Medication Refill Social History Tobacco Use Types [...] Industry Job Start Date Job End Date [employer] Not on file Not on file Not on file COVID-19 Exposure Response Date Recorded In the last 10 days, have azael u been in contact with someone who was confirmed or suspected to have Coronavirus/COVID-19? No / Unsure 01/17/2023 3:23 PM CDT documented as of this encounter Miscellaneous Notes * Telephone Encounter - Kinza Stringer RN - 02/16/2023 1:30 PM CDT Per PDMP, last dispensed 01/17/23 as a 30-day supply Medication failed the protocol, provider to review and approve the medication order if appropriate. Requested Prescriptions Pending Prescriptions Disp Refills HYDROcodone-acetaminophen (NORCO) 5-325 MG Tablet [Pharmacy Med Name: HYDROCODONE-ACETAMINOPHE 5-325 TABS] 60 Tablet 0 Sig: TAKE 1 TABLET BY MOUTH TWICE A DAY NEEDED FOR MODERATE OR MORE SEVERE PAIN Not Delegated - Opioid Combinations Protocol Failed - 02/16/2023 10:26 AM Failed - This refill cannot be delegated Passed - Visit with relevant provider in past 12 months or upcoming 90 days Recent Visits Date Type Provider Dept 01/17/23 Office Visit Titi Hui MD [facility] 09/22/22 Office Visit Rose Marie Dennis APRN, LOREN [facility] [place] 06/20/22 Office Visit Rose Marie [facility] APRN, [place] [facility] [place] 05/16/22 Telemedicine [facility] [place] Showing recent visits within past 365 days and meeting all other requirements Future Appointments Date Type Provider Dept 04/19/23 Appointment Titi Hui MD [facility] Showing future appointments within next 90 days and meeting all other requirements documented in this encounter Plan of Treatment Upcoming Encounters Date Type Department Care Team (Late st Contact Info) Description 08/05/2025 4:15 PM SMOOTH PLATER Office Visit [facility] - Family Medicine - [place] [address] [place] [address] Titi Hui MD #2 [place] [address] 08/10/2025 4:00 PM SMOOTH PLATER Office Visit [facility] - Pulmonology & Sleep Medicine [facility] [address] [place] [address] Melissa Sawnson APRN, HAND CIGAR MAKING SUPERVISOR #[address] [address] documented as of this encounter Visit Diagnoses Diagnosis Chronic joint pain Pain in joint, site unspecified documented in this encounter Additional Health Concerns Infection Onset Date Last Indicated Resolved Time COVID - 19 06/18/2023 06/18/2023 06/28/2023 12:1 6 AM CDT COVID - 19 09/12/2023 09/12/2023 09/22/2023 12:1 6 AM SMOOTH PLATER Assessment Noted Time PHQ-9 Depression Total Score: 0 03/22/20 21 9:00 AM CDT documented as of this encounter Care Teams Warp Tying Machine Knotter Relationship Specialty Start Date End Date Titi Hui MD #[address] [address] PCP - General Family Medicine 02/15/17 Melissa Swanson APRN, HAND CIGAR MAKING SUPERVISOR #[address] [address] Nurse Practitioner Advanced Practice Nurse 02/04/24 documented as of this encounter
--- OUTSIDE RECORDS SUMMARY | 2025-07-23 21:08 | XMS_ITS | Encounter Summary ---
Author Organization [facility] Address [address] [place] [address] Phone Care Team Providers Care Cylinder Valve Repairer Name Role Phone Titi Hui MD Primary Care Provider [phone] Melissa Swanson APRN, LABOR TRAINING MANAGER Unavailable [phone] Reason for Visit * Reason Comments Medication Refill Encounter Details Date Type Department Care Team (Late Contact Info) Description 07/12/2022 Refill [facility] #[address] [place] [address] Titi Hui MD #[address] [address] Medication Refill Social History Tobacco Use Types [...] suspected to have Coronavirus/COVID-19? No / Unsure 06/20/2022 8:43 AM CDT documented as of this encounter Miscellaneous Notes * Telephone Encounter - Margarita Bautista RN - 07/12/2022 10:42 AM CDT PDMP 04/26/22 Medication failed the protocol, provider to review and approve the medication order if appropriate. Requested Prescriptions Pending Prescriptions Disp Refills HYDROcodone-acetaminophen (NORCO) 5-325 MG Tablet [Pharmacy Med Name: HYDROCODONE-ACETAMINOPHE 5-325 TABS] 30 Tablet 0 Sig: TAKE 1 TABLET BY MOUTH DAILY NEEDED FOR MODERATE OR MORE SEVERE. Not Delegated - Opioid Combinations Protocol Failed - 07/12/2022 9:18 AM Failed - This refill cannot be delegated Passed - Visit with relevant provider in past 12 months or upcoming 90 days Recent Visits Date Type Provider Dept 06/20/22 Office Visit Rose Marie Dennis APRN, LABOR TRAINING MANAGER [facility] 05/16/22 Telemedicine Titi Hui MD [facility] 11/14/21 Office Visit Titi Hui MD [facility] Showing recent visits within past 365 days and meeting all other requirements Future Appointments Date Type Provider Dept 09/26/22 Appointment Titi Hui MD [facility] Showing future appointments within next 90 days and meeting all other requirements documented in this encounter Plan of Treatment Upcoming Encounters Date Type Department Care Team (Late st Contact Info) Description 08/05/2025 4:15 PM CUSTODIAL MANAGER [facility] Visit [facility] - [place] [address] [place] [address] Titi Hui MD [address] [address] 08/10/2025 4:00 PM CUSTODIAL MANAGER Office Visit [facility] - Pulmonology & Sleep Medicine [facility] #[address] [place] [address] Melissa Swanson APRN, LABOR TRAINING MANAGER #2 [facility] [address] [place] [address] documented as of this encounter Visit Diagnoses Diagnosis Chronic joint pain Pain in joint, site unspecified documented in this encounter Additional Health Concerns Infection Onset Date Last Indicated Resolved Time COVID - 19 06/18/2023 06/18/2023 06/28/2023 12:1 6 AM CDT COVID - 19 09/12/2023 09/12/2023 09/22/2023 12:1 6 AM CUSTODIAL MANAGER Assessment Noted Time PHQ-9 Depression Total Score: 0 03/22/20 21 9:00 AM CDT documented as of this encounter Care Teams Cylinder Valve Repairer Relationship Specialty Start Date End Date Titi Hui MD #2 [facility] [address] [place] [address] PCP - General Family Medicine 02/15/17 Melissa Swanson APRN, LOREN #2 [facility] [address] [place] [address] Nurse Practitioner Advanced Practice Nurse 02/04/24 documented as of this encounter
--- OUTSIDE RECORDS SUMMARY | 2025-07-23 21:08 | XMS_ITS | Encounter Summary ---
Author Organization [facility] Address [address] [place] [address] Phone Care Team Providers Care District Leader Name Role Phone Titi Hui MD Primary Care Provider [phone] Melissa Swanson APRN, MANAGER TRUCK Unavailable [phone] Reason for Visit * Reason Comments Medication Refill Encounter Details Date Type Department Care Team (Late Contact Info) Description 03/22/2023 Refill [facility] Medicine [facility] [address] [place] [address] Titi Hui MD [address] [address] Medication Refill Social History Tobacco Use Types Packs/Day Years Used Date Smoking Tobacco: Never Smokeless Tobacco: Never Alcohol Use Standard Drinks/Week Comments No 0 (1 standard drink = 0.6 oz pur e alcohol) PHQ-2 Answer Date Recorded Total Score - Questions 1-9 0 02/2021 Sexually Active Control Partners Comments Yes Female Sex and Gender Information Value Date Recorded Sex Assigned at Not on file Legal Sex Male 9:46 PM CDT Gender Identity Not on file Sexual Orientation Not on file Occupation Industry Job Start Date Job End Date [employer] Not on file Not on file Not on file documented as of this encounter Miscellaneous Notes * Telephone Encounter - Margarita Bautista RN - 03/22/2023 5:24 PM CDT PDMP 02/19/23 Medication failed the protocol, provider to review and approve the medication order if appropriate. Requested Prescriptions Pending Prescriptions Disp Refills HYDROcodone-acetaminophen (NORCO) 5-325 MG Tablet [Pharmacy Med Name: HYDROCODONE-ACETAMINOPHE 5-325 TABS] 60 Tablet 0 Sig: TAKE ONE TABLET BY MOUTH TWICE A DAY NEEDED FOR MODERATE OR MORE SEVERE PAIN Not Delegated - Opioid Combinations Protocol Failed - 03/22/2023 9:58 AM Failed - This refill cannot be delegated Passed - Visit with relevant provider in past 12 months or upcoming 90 days Recent Visits Date Type Provider Dept 01/17/23 Office Visit Titi Hui MD [facility] [place] 09/22/22 Office Visit Rose Marie Dennis APRN, MANAGER TRUCK [facility]22 [facility] Rose Marie [facility], MANAGER TR[facility] Tele[facility]icine [facility] Show[facility] recent visits within past 365 days and meeting all other requirements Future Appointments Date Type Provider Dept 04/19/23 Appointment Titi Hui MD [facility] Showing future appointments within next 90 days and meeting all other requirements documented in this encounter Plan of Treatment Upcoming Encounters Date Type Department Care Team (Late st Contact Info) Description 08/05/2025 4:15 PM MEDIA CONSULTANT OUTSIDE SALES Office Visit [facility] - [facility] - [place] [address] [place] [address] Titi Hui MD #[address] [address] 08/10/2025 4:00 PM MEDIA CONSULTANT OUTSIDE SALES [facility] [address] [place] [address] Melissa Swanson APRN, LOREN #2 [facility] [address] [place] [address] documented as of this encounter Visit Diagnoses Diagnosis Chronic joint pain Pain in joint, site unspecified documented in this encounter Additional Health Concerns Infection Onset Date Last Indicated Resolved Time COVID - 19 06/18/2023 06/18/2023 06/28/2023 12:1 6 AM CDT COVID - 19 09/12/2023 09/12/2023 09/22/2023 12:1 6 AM MEDIA CONSULTANT OUTSIDE SALES Assessment Noted Time PHQ-9 Depression Total Score: 0 03/22/20 21 9:00 AM CDT documented as of this encounter Care Teams District Leader Relationship Specialty Start Date End Date Titi Hui MD #2 [facility] [address] [place] [address] PCP - General Family Medicine 02/15/17 Melissa Swanson APRN, LOREN #2 [facility] [address] [place] [address] Nurse Practitioner Advanced Practice Nurse 02/04/24 documented as of this encounter
--- OUTSIDE RECORDS SUMMARY | 2025-07-23 21:08 | XMS_ITS | Encounter Summary ---
Author Organization [facility] Address [address] [place] [address] Phone Care Team Providers Care Production Trainer Name Role Phone Titi Hui MD Primary Care Provider [phone] Melissa Swanson APRN, BIOCHEMISTRY TEACHER Unavailable [phone] Reason for Visit * Reason Comments Medication Refill Encounter Details Date Type Department Care Team (Late Contact Info) Description 04/25/2022 Refill [facility] Family [facility] [address] [place] [address] Titi Hui MD #[address] [address] Medication Refill Social History Tobacco Use Types [...] Industry Job Start Date Job End Date [employer] Not on file Not on file Not on file documented as of this encounter Miscellaneous Notes * Telephone Encounter - Carin Hernández RN - 04/26/2022 10:00 AM CDT PDMP 02/28/22 Medication failed the protocol, provider to review and approve the medication order if appropriate. Requested Prescriptions Pending Prescriptions Disp Refills HYDROcodone-acetaminophen (NORCO) 5-325 MG Tablet [Pharmacy Med Name: HYDROCODONE-ACETAMINOPHE 5-325 TABS] 30 Tablet 0 Sig: TAKE 1 TABLET BY MOUTH DAILY NEEDED FOR MODERATE OR MORE SEVERE. Not Delegated - Opioid Combinations Protocol Failed - 04/25/2022 10:25 AM Failed - This refill cannot be delegated Passed - Visit with relevant provider in past 12 months or upcoming 90 days Recent Visits Date Type Provider Dept 11/14/21 Office Visit Titi Hui MD [facility] 06/29/21 Office Visit Titi Hui MD [facility] Showing recent visits within past 365 days and meeting all other requirements Future Appointments No visits were found meeting these conditions. Showing future appointments within next 90 days and meeting all other requirements documented in this encounter Plan of Treatment Upcoming Encounters Date Type Department Care Team (Late st Contact Info) Description 08/05/2025 4:15 PM SPIRAL TUBE WINDER Office Visit [facility] - Family Medicine - [place] [address] [place] [address] Titi Hui MD #2 [facility] [address] [place] [address] 08/10/2025 4:00 PM SPIRAL TUBE WINDER Office Visit [facility] - Pulmonology & Sleep Medicine - [place] [address] [place] [address] Melissa Swanson APRN, BIOCHEMISTRY TEACHER #2 [facility] [address] [place] [address] documented as of this encounter Visit Diagnoses Diagnosis Chronic joint pain Pain in joint, site unspecified documented in this encounter Additional Health Concerns Infection Onset Date Last Indicated Resolved Time COVID - 19 06/18/2023 06/18/2023 06/28/2023 12:1 6 AM CDT COVID - 19 09/12/2023 09/12/2023 09/22/2023 12:1 6 AM SPIRAL TUBE WINDER Assessment Noted Time PHQ-9 Depression Total Score: 0 03/22/20 21 9:00 AM CDT documented as of this encounter Care Teams Production Trainer Relationship Specialty Start Date End Date Titi Hui MD #2 [facility] [address] [place] [address] PCP - General Family Medicine 02/15/17 Melissa Swanson APRN, BIOCHEMISTRY TEACHER #2 [facility] [address] [place] [address] Nurse Practitioner Advanced Practice Nurse 02/04/24 documented as of this encounter
== END 2025-07-23 17:06 | disposition home or self-care (01) ==
PROVIDERS: Emergency Provider Nurse Practitioner; PCP Family Medicine
DX: J06.9 Acute upper respiratory infection, unspecified (principal); Z79.891 Long term (current) use of opiate analgesic; Z20.822 Contact with and (suspected) exposure to COVID-19
CPT/HCPCS: 87426; 87804; 99213; G0463